=== PATIENT | female | born 1990 | race Caucasian/White ===

== ENCOUNTER → 2016-11-24 | Day surgery (SDC) | payer OTHER ==
--- NOTE | 2016-11-25 14:43 | PATH ---
Cytology Non-Gynecological Report Patient Name: [facility]. Rec. #: [id number] /Age/Gender: 1990 (Age: 25) / F Account: [id number] Location: RADIOLOGY Taken: 11/24/2016 Received: 11/24/2016 Reported: 11/25/2016 Physicians: Osiris Crews MD Specimen(s) Received THYROID FNA Clinical History Right thyroid nodule, 1.3 x 0.75 x 1.3 cm Final Diagnosis THYROID GLAND, RIGHT LOBE, US GUIDED FINE NEEDLE ASPIRATION BIOPSY: ASSESSMENT THE EVALUATION. NO MALIGNANT CELLS IDENTIFIED. CONSISTENT WITH NODULAR HYPERPLASIA (BENIGN FOLLICULAR NODULE, BETHESDA CATEGORY II, BENIGN), SEE COMMENT. Comment: The smears show clusters of bland-appearing follicular epithelium cells in macrofollicles and flat sheets and colloid. Electronically Signed Jose Nagy M.D. Gross Description Received is one air dried smears, one smears in 95% alcohol, and 15 cc of bloody fluid in formalin. One diff-quik stained slides, one Pap stained slides and one cell block are made.
== END | disposition home or self-care (01) ==
LOC: JRADIR 07:58
PROVIDERS: ATTEND Family Medicine
PROC: 0G9H3ZX Drainage of Right Thyroid Gland Lobe, Percutaneous Approach, Diagnostic (ICD-10-PCS; principal; 2016-11-24)
PROC: BG44ZZZ Ultrasonography of Thyroid Gland (ICD-10-PCS; 2016-11-24)
DX: E04.1 Nontoxic single thyroid nodule (principal)
CPT/HCPCS: 76942; 88173; 88305-TC

== ENCOUNTER 2017-05-18 02:10 | Emergency (ER) | payer OTHER ==
[2017-05-18 03:34] VITALS: BMI 28.5
[2017-05-18] MEDS ORDERED: ACETAMINOPHEN 325 MG TABLET (FP) PO ONE (03:56)
--- NOTE | 2017-05-18 04:21 | PDOC ---
History of Present Illness - General Chief Complaint: Injury Stated Complaint: FINGER INJURY Time Seen by Provider: 05/18/17 03:52 History Source: Patient Exam Limitations: No Limitations - History of Present Illness Initial Comments: 05/18/17 04:14 26yo Female patient w/ PmHx: Asthma, Gastric Sleeve presents to ED c/o left hand small finger injury. Patient states while playing around with her boyfriend her finger became stuck in his shirt and she yanked it out causing injury. She states she was trying to sleep, but was unable to due to pain. She denies any other complaints at this time. LNMP: IUD. Occurred: reports: this evening Severity: reports: mild Pain Location: reports: upper extremity Method of Injury: Yes: other Modifying Factors: worse with: None, cold therapy, immobilization, pain medication, rest, other Past History - Travel Traveled outside of the country in the last 30 days: No Close contact w/someone who was outside of country & ill: No - Past Medical History Allergies/Adverse Reactions: Allergies Allergy/AdvReac Type Severity Reaction Status Date / Time ciprofloxacin [From Cipro] Allergy Severe anaphylaxis Verified 05/18/17 02:50 ciprofloxacin HCl Allergy Severe anaphylaxis Verified 05/18/17 02:50 [From Cipro] codeine [Codeine] Allergy Severe Swelling Verified 05/18/17 02:50 butalbital [From Fioricet] Allergy Vomiting Verified 05/18/17 02:50 caffeine [From Fioricet] Allergy Vomiting Verified 05/18/17 02:50 Home Medications: Ambulatory Orders Albuterol Sulfate Inhaler - [Ventolin Hfa Inhaler -] 1 - 2 inh PO QID PRN Anemia: No Asthma: Yes Cancer: No Cardiac Disorders: No CVA: No COPD: No CHF: No Dementia: No Diabetes: No GI Disorders: Yes (GASTRITIS) Disorders: Yes (CYSTITIS, FREQUENCY) HTN: No Hypercholesterolemia: No Suicide Attempt (Hx): No Seizures: No Thyroid Disease: No - Surgical History Appendectomy: No Cardiac Surgery: No Cholecystectomy: Yes (2014) Lung Surgery: No Neurologic Surgery: No Orthopedic Surgery: No - Reproductive History (#): 2 Para: 1 Spontaneous : 1 - Immunization History Td Vaccination: Yes (MAY 2014) Immunization Up to Date: Yes - Psycho/Social/Smoking Cessation Hx Anxiety: No Suicidal Ideation: No Smoking Status: No Smoking History: Never smoked Have you smoked in the past 12 months: No Number of Cigarettes Smoked Daily: 0 Hx Alcohol Use: No Drug/Substance Use Hx: No Substance Use Type: None Hx Substance Use Treatment: No Trauma Specific PMHX - Complaint Specific PMHX Arthritis: No Back Injury: No Neck Injury: No Hx Sacro Iliac Joint Dysfunction: No Review of Systems - Review of Systems Able to Perform ROS?: Yes Is the patient limited Moroccan proficient: No Musculoskeletal: Yes: Other (Hand Injury- Left small finger.) All Other Systems: Reviewed and Negative *Physical Exam - Vital Signs Last Vital Signs Temp Pulse Resp BP Pulse Ox 98.1 F 57 L 18 121/69 99 05/18/17 02:47 05/18/17 02:47 05/18/17 02:47 05/18/17 02:47 05/18/17 02:47 - Physical Exam General Appearance: Yes: Nourished, Appropriately Dressed. No: Apparent Distress, Mild Distress, Moderate Distress, Severe Distress Respiratory/Chest: positive: Lungs Clear, Normal Breath Sounds. negative: Chest Tender, Respiratory Distress, Accessory Muscle Use, Labored Respiration, Rapid RR Cardiovascular: positive: Regular Rhythm, Regular Rate Musculoskeletal: positive: Normal Inspection. negative: CVA Tenderness, Vertebral Tenderness Extremity: positive: Normal Capillary Refill, Normal Inspection, Normal Range of Motion, Other (Tenderness to left small finger on Passive ROM. No deformity, swelling, bruising, erythema noted.) Integumentary: positive: Normal Color, Dry, Warm. 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, Fully Oriented, Alert, Normal Mood/ Affect, Normal Response, Motor Strength 5/5 ED Treatment Course - RADIOLOGY Radiology Studies Ordered: Category Date Time Status HAND- LEFT [RAD] Stat Radiology 05/18/17 03:56 Ordered *DC/Admit/Observation/Transfer Diagnosis at time of Disposition: Sprain of finger Qualifiers: Encounter type: initial encounter Finger: little finger Sprain of finger site: unspecified site Laterality: left Qualified Code(s): S63.617A - Unspecified sprain of left little finger, initial encounter - Discharge Dispostion Disposition: HOME Condition at time of disposition: Stable Admit: No - Patient Instructions Printed Discharge Instructions: DI for Finger Sprain Additional Instructions: Take Tylenol for pain as needed. Apply cold compress to affected area as needed. Perform ROM exercises twice daily. Return if symptom worsen or any concerns for further evaluation. Print Language: ARMENIAN - Post Discharge Activity Work/School Note: Back to Work
[2017-05-18] MEDS ORDERED: ACETAMINOPHEN 325 MG TABLET (FP) ONE (04:23)
[2017-05-18 05:40] VITALS: BP 120/72; PULSE 63; TEMP 98
== END 2017-05-18 05:39 | disposition home or self-care (01) ==
LOC: JER 02:10
DX: S63.637A Sprain of interphalangeal joint of left little finger, initial encounter (principal); X50.0XXA Overexertion from strenuous movement or load, initial encounter; Y93.83 Activity, rough housing and horseplay; Y92.038 Other place in apartment as the place of occurrence of the external cause
CPT/HCPCS: 73130-TC-LT; 99282-25

== ENCOUNTER 2017-10-26 18:47 | Emergency (ER) | payer OTHER ==
[2017-10-26 19:12] LABS: PH,URINE 5.5 (4.5-8); URINE APPEARANCE Clear; URINE BILIRUBIN Negative (NEGATIVE); URINE BLOOD Negative (NEGATIVE); URINE GLUCOSE (UA) Negative (NEGATIVE); URINE KETONE Trace (NEGATIVE); URINE LEUK ESTERASE Negative (NEGATIVE); URINE NITRITE Negative (NEGATIVE); URINE PROTEIN Negative (NEGATIVE); URINE UROBILINOGEN 0.2 (0.2-1.0)
[2017-10-26 19:14] VITALS: BP 112/74; PULSE 64; TEMP 98.7; BMI 26.2
[2017-10-26 19:16] LABS: URINE COLOR YELLOW
--- NOTE | 2017-10-26 19:39 | PDOC ---
History of Present Illness - General History Source: Patient Exam Limitations: No Limitations - History of Present Illness Initial Comments: 10/26/17 19:50 26 year old female , with PMH of asthma, gastric sleeve bypass (2014), cholecystectomy, ovarian cysts, pyelonephritis (1 year ago), frequent UTIs, who presents to the emergency room complaining of nonradiating RLQ abdominal pain that is 8/10 in severity, nausea, and 1 episode of diarrhea. The pain woke her up from sleep this morning and has been constant throughout the day. She states that she has never felt pain similar to this before. Her LMP was on 10/20. Denies fever, chills, vomiting. Denies constipation, bloody or tarry stool. She denies any back pain. Denies urinary symptoms. Denies vaginal discharge. Allergies: ciprofloxacin, ciprofloxacin HCl, codeine, butalbital, caffeine Surgical Hx: asthma gastric sleeve (2014), cholecystectomy Social hx: No tabacco use. No recreational drug use. No alcohol use. PCP: Dr. Garay 10/26/17 19:59 <Halina Vivar - Last Filed: 10/26/17 19:59> <Isi Garg - Last Filed: 10/27/17 02:11> - General Chief Complaint: Pain Stated Complaint: ABDOMINAL PAIN Time Seen by Provider: 10/26/17 19:20 Past History <Halina Vivar - Last Filed: 10/26/17 19:59> - Past Medical History Anemia: No Asthma: Yes Cancer: No Cardiac Disorders: No CVA: No COPD: No CHF: No Dementia: No Diabetes: No GI Disorders: Yes (GASTRITIS) Disorders: Yes (CYSTITIS, FREQUENCY) HTN: No Hypercholesterolemia: No Seizures: No Thyroid Disease: Yes (NODULE) - Surgical History Appendectomy: No Cardiac Surgery: No Cholecystectomy: Yes (2015 AND BILE DUCT) Gastric Stapling: Yes (GASTRIC SLEEVE) Lung Surgery: No Neurologic Surgery: No Orthopedic Surgery: No - Reproductive History Is Patient Now?: No (#): 2 Para: 1 Spontaneous : 1 - Immunization History Td Vaccination: Yes (MAY 2014) Immunization Up to Date: Yes - Suicide/Smoking/Psychosocial Hx Smoking Status: No Smoking History: Never smoked Have you smoked in the past 12 months: No Number of Cigarettes Smoked Daily: 0 Hx Alcohol Use: Yes (OCCASIONAL) Drug/Substance Use Hx: No Substance Use Type: None Hx Substance Use Treatment: No <Isi Garg - Last Filed: 10/27/17 02:11> - Past Medical History Allergies/Adverse Reactions: Allergies Allergy/AdvReac Type Severity Reaction Status Date / Time ciprofloxacin [From Cipro] Allergy Severe anaphylaxis Verified 05/18/17 02:50 ciprofloxacin HCl Allergy Severe anaphylaxis Verified 05/18/17 02:50 [From Cipro] codeine [Codeine] Allergy Severe Swelling Verified 05/18/17 02:50 butalbital [From Fioricet] Allergy Vomiting Verified 05/18/17 02:50 caffeine [From Fioricet] Allergy Vomiting Verified 05/18/17 02:50 Home Medications: Ambulatory Orders Albuterol Sulfate Inhaler - [Ventolin Hfa Inhaler -] 1 - 2 inh PO QID PRN Ergocalciferol (Vitamin D2) [Vitamin D2] 50,000 unit PO WEEKLY 10/26/17 Fluticasone Propionate [Flovent Diskus] 50 mcg IH DAILY 10/26/17 Multivit/Iron/FA/K/Herb No.244 [Alive Women's Energy Mv Tablet] 2 each PO DAILY 10/26/17 Review of Systems - Review of Systems Able to Perform ROS?: Yes Comments:: 10/26/17 19:55 GENERAL/CONSTITUTIONAL: No fever or chills. No weakness. HEAD, EYES, EARS, NOSE AND THROAT: No change in vision. No ear pain or discharge. No sore throat. CARDIOVASCULAR: No chest pain or shortness of breath. RESPIRATORY: No cough, wheezing, or hemoptysis. GASTROINTESTINAL: +RLQ pain, nausea, diarrhea. No vomiting or constipation. GENITOURINARY: No dysuria, frequency, or change in urination. MUSCULOSKELETAL: No joint or muscle swelling or pain. No neck or back pain. SKIN: No rash NEUROLOGIC: No headache, vertigo, loss of consciousness, or change in strength/ sensation. ENDOCRINE: No increased thirst. No abnormal weight change. HEMATOLOGIC/LYMPHATIC: No anemia, easy bleeding, or history of blood clots. ALLERGIC/IMMUNOLOGIC: No hives or skin allergy. <Halina Vivar - Last Filed: 10/26/17 19:59> *Physical Exam - Vital Signs Last Vital Signs Temp Pulse Resp BP Pulse Ox 98.7 F 64 16 112/74 100 10/26/17 18:48 10/26/17 18:48 10/26/17 18:48 10/26/17 18:48 10/26/17 18:48 - Physical Exam Comments: 10/26/17 19:54 GENERAL: Awake, alert, and fully oriented, in no acute distress HEAD: No signs of trauma EYES: PERRLA, EOMI, sclera anicteric, conjunctiva clear ENT: Auricles normal inspection, hearing grossly normal, nares patent, oropharynx clear without exudates. Moist mucosa NECK: Normal ROM, supple, no lymphadenopathy, JVD, or masses LUNGS: Breath sounds equal, clear to auscultation bilaterally. No wheezes, and no crackles HEART: Regular rate and rhythm, normal S1 and S2, no murmurs, rubs or gallops ABDOMEN: Soft, +moderate RLQ tenderness to palpation normoactive bowel sounds. No guarding, no rebound. No masses EXTREMITIES: Normal range of motion, no edema. No clubbing or cyanosis. No cords, erythema, or tenderness NEUROLOGICAL: Cranial nerves II through XII grossly intact. Normal speech, normal gait SKIN: Warm, Dry, normal turgor, no rashes or lesions noted. <Halina Vivar - Last Filed: 10/26/17 19:59> - Vital Signs Last Vital Signs Temp Pulse Resp BP Pulse Ox 98.7 F 64 16 112/74 100 10/26/17 18:48 10/26/17 18:48 10/26/17 18:48 10/26/17 18:48 10/26/17 18:48 <Isi Garg - Last Filed: 10/27/17 02:11> ED Treatment Course - ADDITIONAL ORDERS Additional order review: Laboratory Results 10/26/17 18:56 Urine Color Yellow Urine Appearance Clear Urine pH 5.5 Ur Specific [place] >= 1.030 H Urine Protein Negative Urine Glucose (UA) Negative Urine Ketones Trace Urine Blood Negative Urine Nitrite Negative Urine Bilirubin Negative Urine Urobilinogen 0.2 Ur Leukocyte Esterase Negative Urine HCG, Qual Negative <Halina Vivar - Last Filed: 10/26/17 19:59> - LABORATORY CBC & Chemistry Diagram: 10/26/17 19:55 10/26/17 19:55 - ADDITIONAL ORDERS Additional order review: Laboratory Results 10/26/17 18:56 Urine Color Yellow Urine Appearance Clear Urine pH 5.5 Ur Specific [place] >= 1.030 H Urine Protein Negative Urine Glucose (UA) Negative Urine Ketones Trace Urine Blood Negative Urine Nitrite Negative Urine Bilirubin Negative Urine Urobilinogen 0.2 Ur Leukocyte Esterase Negative Urine HCG, Qual Negative <Isi Garg - Last Filed: 10/27/17 02:11> Progress Note - Progress Note Progress Note: Documentation has been prepared under my direction and personally reviewed by me in its entirety. I attest that this documented accurately reflects all work, treatment, procedures and medical decision making performed by me. <Isi Garg Filed: 10/27/17 02:11> Medical Decision Making - Medical Decision Making As noted above, this 26-year-old woman presents with right lower quadrant pain; she also has nausea and one episode of diarrhea. No known sick contacts and no fever/chills reported. She has a history of ovarian cysts. Exam as noted Laboratory evaluation is essentially normal with white blood cell count of 6500 Ultrasound of the pelvis was performed to evaluate for right ovarian torsion or ruptured ovarian cyst. Ultrasound revealed no evidence of either process.: No free fluid with no evidence of cysts or torsion. Because appendix was not visualized during the ultrasound exam, CT of the abdomen and pelvis was require to fully rule out acute appendicitis Abdominal/pelvic CT interpreted by Imaging conduit helper: Normal appendix visualized. No other acute pathology. There was low attenuated area in the right lobe of the liver. Results discussed with the patient. Although she had no escalation of her pain and no vomiting during her stay in the emergency room, the patient still had discomfort in the right lower quadrant after several hours. Etiology of the pain is unclear since appendix/intestinal abnormality not visualized on CT; no ureteral stone evident and ovarian pathology not present. It is possible that patient has some discomfort related to early gastroenteritis. In any case, the patient should return if pain worsens or she develops vomiting/fever. She should drink plenty of fluids but maintain a light diet and follow up with her doctor in the near future. A copy of the preliminary interpretation of the CT was provided for the patient. <Isi Garg Filed: 10/27/17 02:11> *DC/Admit/Observation/Transfer - Attestations Scribe Attestion: 10/26/17 19:56 Documentation prepared by TAMMY Monroy, acting as medical equipment repair technician for Isi Garg MD <Halina Vivar - Last Filed: 10/26/17 19:59> <Isi Garg - Last Filed: 10/27/17 02:11> Diagnosis at time of Disposition: Abdominal pain Qualifiers: Abdominal location: right lower quadrant Qualified Code(s): R10.31 - Right lower quadrant pain - Discharge Dispostion Disposition: HOME Condition at time of disposition: Stable - Referrals Referrals: Eliceo Garay MD [Primary Care Provider] - - Patient Instructions Printed Discharge Instructions: DI for Abdominal Pain-Adult Additional Instructions: Drink plenty of water Light diet can take ibuprofen/naproxen/acetaminophen as needed; take with food Return to ER if you have worsening pain/vomiting/fever Follow-up with your doctor within the next 4 days - Post Discharge Activity Forms/Work/School Notes: Back to School
[2017-10-26] MEDS ORDERED: KETOROLAC TROMETHAMINE 30 MG/1 ML VIAL IVPUSH ONE (19:47)
[2017-10-26] MEDS ORDERED: SODIUM CHLORIDE 1,000 ML IV STA (19:47)
[2017-10-26] MEDS ORDERED: KETOROLAC TROMETHAMINE 30 MG/1 ML VIAL ONE (20:01)
[2017-10-26 20:14] LABS: BASOPHIL 0.7 % (0-2.0); EOSINOPHIL 0.9 % (0-4.5); MCH 30.2 pg (25.7-33.7); MCHC 35.1 g/dl (32.0-36.0); MEAN CELL VOLUME 86.2 fl (80-96); MEAN PLT VOLUME 8.3 fl (7.5-11.1); NEUTROPHILS 50.8 % (42.8-82.8); PLATELET COUNT 258 K/MM3 (134-434); RDW 12.1 % (11.6-15.6); WHITE BLOOD COUNT 6.5 K/mm3 (4.0-10.8)
[2017-10-26 20:27] LABS: ALBUMIN 3.9 g/dl (3.5-5.0); ALK PHOS 75 U/L (32-92); ANION GAP 4 (8-16); BILIRUBIN,TOTAL 0.3 mg/dl (0.2-1.0); CALCIUM 8.9 mg/dl (8.4-10.2); CO2 25 mmol/L (22-28); CREATININE 0.7 mg/dl (0.6-1.3); GLUCOSE,RANDOM 84 mg/dl (74-106); SGOT/AST 16 U/L (10-42); SGPT/ALT 6 U/L (10-40); TOT PROT 6.3 g/dl (6.4-8.3)
[2017-10-26] MEDS ORDERED: ONDANSETRON 4 MG/2 ML VIAL IVPUSH ONE (21:50)
[2017-10-26] MEDS ORDERED: ONDANSETRON 4 MG/2 ML VIAL ONE (21:54)
== END 2017-10-27 01:34 | disposition home or self-care (01) ==
LOC: FER 18:47
PROC: 3E0333Z Introduction of Anti-inflammatory into Peripheral Vein, Percutaneous Approach (ICD-10-PCS; principal; 2017-10-26)
PROC: 3E033GC Introduction of Other Therapeutic Substance into Peripheral Vein, Percutaneous Approach (ICD-10-PCS; 2017-10-26)
PROC: 3E0337Z Introduction of Electrolytic and Water Balance Substance into Peripheral Vein, Percutaneous Approach (ICD-10-PCS; 2017-10-26)
DX: R10.31 Right lower quadrant pain (principal); Z98.84 Bariatric surgery status; E04.1 Nontoxic single thyroid nodule
CPT/HCPCS: 36415; 74177-TC; 76856-TC; 80053; 81003; 84703; 85025; 99283-25

== ENCOUNTER 2018-01-11 17:45 | Emergency (ER) | payer OTHER ==
[2018-01-11] MEDS ORDERED: METOCLOPRAMIDE HCL INJECTION 10 MG/2 ML VIAL IVPUSH ONE (17:50)
[2018-01-11] MEDS ORDERED: SODIUM CHLORIDE 1,000 ML IV STA (17:50)
[2018-01-11] MEDS ORDERED: KETOROLAC TROMETHAMINE 30 MG/1 ML VIAL IVPUSH ONE (17:50)
[2018-01-11] MEDS ORDERED: DEXAMETHASONE SOD PHOSPHATE 10 MG/1 ML VIAL IVPUSH ONE (17:50)
[2018-01-11 17:54] VITALS: BP 114/68; PULSE 81; TEMP 98.1; BMI 27.4
--- NOTE | 2018-01-11 17:56 | PDOC ---
History of Present Illness - General Chief Complaint: Pain Stated Complaint: DIZZINESS, HEADACHE, CHEST PAIN Time Seen by Provider: 01/11/18 17:49 History Source: Patient Exam Limitations: No Limitations - History of Present Illness Initial Comments: 01/11/18 17:51 27 y/o female with headache for 2 weeks. Denies fever or neck pain. No aura. Hx of migraines in the past. OTC medications not working. Denies fall or trauma. Patient went to her PMD yesterday and was given referrals to specialists including Neurologist but stated wait time too long. Feels nauseous, no vomiting. This is not the worse headache of her life. No weakness or numbness. Has palpitations, chest tightness, but no back pain. No blurred vision. Past History - Past Medical History Allergies/Adverse Reactions: Allergies Allergy/AdvReac Type Severity Reaction Status Date / Time ciprofloxacin [From Cipro] Allergy Severe anaphylaxis Verified 01/11/18 17:47 ciprofloxacin HCl Allergy Severe anaphylaxis Verified 01/11/18 17:47 [From Cipro] codeine [Codeine] Allergy Severe Swelling Verified 01/11/18 17:47 butalbital [From Fioricet] Allergy Vomiting Verified 01/11/18 17:47 caffeine [From Fioricet] Allergy Vomiting Verified 01/11/18 17:47 Home Medications: Ambulatory Orders Levonorgestrel [Mirena] 1 each IY ASDIR 01/11/18 Marlin 01/11/18 Anemia: No Asthma: Yes Cancer: No Cardiac Disorders: No CVA: No COPD: No CHF: No Dementia: No Diabetes: No GI Disorders: Yes (GASTRITIS) Disorders: Yes (CYSTITIS, FREQUENCY) HTN: No Hypercholesterolemia: No Seizures: No Thyroid Disease: Yes (NODULE) - Surgical History Appendectomy: No Cardiac Surgery: No Cholecystectomy: Yes (2015 AND BILE DUCT) Gastric Stapling: Yes (GASTRIC SLEEVE) Lung Surgery: No Neurologic Surgery: No Orthopedic Surgery: No - Reproductive History (#): 2 Para: 1 Spontaneous : 1 - Immunization History Td Vaccination: Yes (MAY 2014) Immunization Up to Date: Yes - Suicide/Smoking/Psychosocial Hx Smoking Status: No Smoking History: Never smoked Have you smoked in the past 12 months: No Number of Cigarettes Smoked Daily: 0 Hx Alcohol Use: Yes (OCCASIONAL) Drug/Substance Use Hx: No Substance Use Type: None Hx Substance Use Treatment: No Review of Systems - Review of Systems Able to Perform ROS?: Yes Is the patient limited Portuguese proficient: No Constitutional: No: Chills, Fever Respiratory: No: Shortness of Breath Cardiac (ROS): No: Chest Pain ABD/GI: Yes: Nausea. No: Vomiting Musculoskeletal: No: Back Pain Neurological: Yes: Headache. No: Numbness, Paresthesia All Other Systems: Reviewed and Negative *Physical Exam - Physical Exam General Appearance: Yes: Nourished, Appropriately Dressed, Mild Distress HEENT: positive: EOMI, MARIA DE JESUS, Normal ENT Inspection, Normal Voice, Symmetrical, Pharynx Normal. negative: Sinus Tenderness Neck: positive: Trachea midline, Normal Thyroid, Supple, Other (no menineal signs noted). negative: Tender, Rigid Respiratory/Chest: positive: Lungs Clear, Normal Breath Sounds. negative: Chest Tender, Respiratory Distress Cardiovascular: positive: Regular Rhythm, Regular Rate, S1, S2. negative: Edema , JVD, Murmur Vascular Pulses: Femoral (R): 4+, Femoral (L): 4+, Carotid (R): 4+, Carotid (L) : 4+, Dorsalis-Pedis (R): 4+, Doralis-Pedis (L): 4+ Gastrointestinal/Abdominal: positive: Normal Bowel Sounds, Flat, Soft. negative : Tender, Organomegaly Lymphatic: negative: Adenopathy, Tenderness, Other Musculoskeletal: positive: Normal Inspection. negative: CVA Tenderness Extremity: positive: Normal Capillary Refill, Normal Inspection, Normal Range of Motion. negative: Tender Integumentary: positive: Normal Color, Dry, Warm Neurologic: positive: toe sewer II-XII NML intact, Fully Oriented, Alert, Normal Mood/ Affect, Normal Response, Motor Strength 5/5 (strength 5+/5 b/l in UE adn LE, no focal deficits noted) ED Treatment Course - LABORATORY CBC & Chemistry Diagram: 01/11/18 18:10 01/11/18 18:10 - ADDITIONAL ORDERS Additional order review: 01/11/18 17:55 Pt appears to have a migraine headache, will obtain CT head and give IVF and pain medications. 01/11/18 18:46 CT head negative for bleed 01/11/18 18:53 Pt is feeling a little better, labs all normal. 01/11/18 18:59 No menigeal signs noted. Headache is improving. Pt will follow up with PMD/Neurologist If worsen will return to ER - RADIOLOGY Radiology Studies Ordered: Category Date Time Status HEAD CT WITHOUT CONTRAST [CT] Stat CT Scan 01/11/18 17:50 Ordered *DC/Admit/Observation/Transfer Diagnosis at time of Disposition: Migraine headache Qualifiers: Migraine type: unspecified Status migrainosus presence: without status migrainosus Intractability: not intractable Qualified Code(s): G43.909 - Migraine, unspecified, not intractable, without status migrainosus - Discharge Dispostion Disposition: HOME Condition at time of disposition: Stable - Referrals - Patient Instructions Printed Discharge Instructions: DI for Migraine Additional Instructions: Fluids, rest, Tylenol Follow up with Neurologist If worsen return to ER - Post Discharge Activity Forms/Work/School Notes: Back to Work
[2018-01-11] MEDS ORDERED: DEXAMETHASONE SOD PHOSPHATE 10 MG/1 ML VIAL ONE (18:01)
[2018-01-11] MEDS ORDERED: KETOROLAC TROMETHAMINE 30 MG/1 ML VIAL ONE (18:01)
[2018-01-11 18:33] LABS: BASO % 0.5 % (0-2.0); EOS % 0.6 % (0-4.5); HEMATOCRIT 40.8 % (32.4-45.2); HEMOGLOBIN 14.2 GM/dl (10.7-15.3); LYMPH % 27.6 % (8-40); MCH 29.8 pg (25.7-33.7); MCHC 34.8 g/dl (32.0-36.0); MEAN CELL VOLUME 85.7 fl (80-96); MEAN PLT VOLUME 7.6 fl (7.5-11.1); MONO % 8.2 % (3.8-10.2); NEUT % 63.1 % (42.8-82.8); PLATELET COUNT 357 K/MM3 (134-434); RBC 4.76 M/mm3 (3.60-5.2); RDW 11.2 % (11.6-15.6)
[2018-01-11 18:38] LABS: ALK PHOS 52 U/L (32-92); ANION GAP 4 (8-16); BLOOD UREA NITROGEN 14 mg/dl (7-18); CALCIUM 9.1 mg/dl (8.4-10.2); CHLORIDE 105 mmol/L (98-107); CO2 24 mmol/L (22-28); GLUCOSE,RANDOM 108 mg/dl (74-106); POTASSIUM 4.1 mmol/L (3.5-5.1); SGOT/AST 21 U/L (10-42); SODIUM 133 mmol/L (136-145); TOT PROT 6.9 g/dl (6.4-8.3)
[2018-01-11 18:56] LABS: BILIRUBIN,TOTAL 0.5 mg/dl (0.2-1.0); CREATININE 0.8 mg/dl (0.6-1.3); SGPT/ALT 8 U/L (10-40)
--- NOTE | 2018-01-12 18:20 | EKG ---
Test Reason : Blood Pressure : / mmHG Vent. Rate : 082 BPM Atrial Rate : 082 BPM P-R Int : 144 ms QRS Dur : 072 ms QT Int : 366 ms P-R-T Axes : 061 072 034 degrees QTc Int : 427 ms POOR DATA QUALITY, INTERPRETATION MAY BE ADVERSELY AFFECTED NORMAL SINUS RHYTHM WHEN COMPARED WITH ECG OF 06-APR-2016 15:54, NO SIGNIFICANT CHANGE WAS FOUND Confirmed by MD WENDY, LISA ([id number]) on 01/12/2018 6:19:32 PM Referred By: DR BERRY Confirmed By:LISA NGUYEN MD
== END 2018-01-11 19:20 | disposition home or self-care (01) ==
LOC: FER 17:45
PROC: 3E033GC Introduction of Other Therapeutic Substance into Peripheral Vein, Percutaneous Approach (ICD-10-PCS; principal; 2018-01-11)
PROC: 3E0333Z Introduction of Anti-inflammatory into Peripheral Vein, Percutaneous Approach (ICD-10-PCS; 2018-01-11)
PROC: 3E0337Z Introduction of Electrolytic and Water Balance Substance into Peripheral Vein, Percutaneous Approach (ICD-10-PCS; 2018-01-11)
DX: G43.909 Migraine, unspecified, not intractable, without status migrainosus (principal); J45.909 Unspecified asthma, uncomplicated; K29.70 Gastritis, unspecified, without bleeding
CPT/HCPCS: 36415; 70450-TC; 80053; 84484; 84703; 85025; 93005; 99285-25; J1100

== ENCOUNTER 2018-07-17 05:01 | Day surgery (SDC) | payer OTHER ==
[2018-07-12 17:47] VITALS: BMI 29.9
[2018-07-17] MEDS ORDERED: ceFAZolin SODIUM 1 GM VIAL IVPB ONE ×2 (12:08→13:08)
--- NOTE | 2018-07-17 12:52 | HP ---
History & Physical Update - History History: No Change - Physical Physical: No Change - Assessment Assessment: No Change - Plan Plan: No Change (Consent signed and witnessed)
[2018-07-17] MEDS ORDERED: MIDAZOLAM HCL 2 MG/2 ML SINGLE DOSE VIAL ONE ×2 (12:57)
[2018-07-17] MEDS ORDERED: ROCURONIUM BROMIDE 50 MG/5 ML VIAL ONE (13:03)
[2018-07-17] MEDS ORDERED: BUPIVACAINE HCL/PF 0.25% (2.5MG/ML) 10 ML VIAL ONE (13:48)
[2018-07-17] MEDS ORDERED: BUPIVACAINE HCL/PF 0.25% (2.5MG/ML) 10 ML VIAL IJ ONE (13:50)
[2018-07-17] MEDS ORDERED: GLYCOPYRROLATE 0.2 MG/1 ML VIAL ONE (13:51)
[2018-07-17] MEDS ORDERED: ceFAZolin SODIUM 1 GM VIAL ONE (13:51)
[2018-07-17] MEDS ORDERED: NEOSTIGMINE METHYLSULFATE 0.5 MG/ML - 10 ML MDV ONE (13:51)
[2018-07-17] MEDS ORDERED: LIDOCAINE HCL/PF 2% SDV 5ML VIAL ONE (13:51)
[2018-07-17] MEDS ORDERED: DEXAMETHASONE SOD PHOSPHATE 4 MG/1 ML VIAL ONE (13:51)
[2018-07-17] MEDS ORDERED: LIDOCAINE HCL 2% JELLY (5 ML/TUBE) ONE (13:51)
--- NOTE | 2018-07-17 14:16 | OP ---
Operative Note - Note: Operative Date: 07/17/18 Pre-Operative Diagnosis: 27yo P2 with Chronic pelvic pain Operation: Dignostic Laporoscopy Findings: Abdomen and pelvis clear of adhesions Normal bilateral adnexa and appendix No evidence of Endometriosis Post-Operative Diagnosis: Same as Pre-op Surgeon: Mervat Kerr Scutcher Tender: Juliana Gloria Anesthesiologist/AVIATION CONSULTANT: Naty Au MD Anesthesia: General Specimens Removed: None Estimated Blood Loss (mls): 0 Drains, Volume Out (mls): 100 Fluid Volume Replaced (mls): 1,000 Operative Report Dictated: Yes
[2018-07-17] MEDS ORDERED: oxyCODONE HCL 5 MG TABLET PO PRN (14:17)
[2018-07-17] MEDS ORDERED: IBUPROFEN 800 MG/8 ML IJ IVPB PRN (14:17)
[2018-07-17] MEDS ORDERED: ONDANSETRON 4 MG/2 ML VIAL IVPUSH PRN ×2 (14:17→14:19)
[2018-07-17] MEDS ORDERED: IBUPROFEN 600 MG TABLET (FP) PO PRN (14:17)
[2018-07-17] MEDS ORDERED: LACTATED RINGERS SOLUTION 1,000 ML IV SCH (14:30)
[2018-07-17] MEDS ORDERED: ELECTROLYTE-148 SOLN 1,000 ML IV SCH (14:30)
[2018-07-17] MEDS ORDERED: ALBUTEROL SO4 0.083% IH SOL 2.5 MG/3 ML VIAL.NEB. NEB ONE (15:15)
[2018-07-17 15:54] VITALS: TEMP 98.1
[2018-07-17] MEDS ORDERED: KETOROLAC TROMETHAMINE 30 MG/1 ML VIAL ONE (16:06)
--- NOTE | 2018-07-17 16:43 | SURG ---
Surgery Environmental Protection Officer Note Environmental Protection Officer: Juliana Gloria PA-C Date of Service: 07/17/18 Diagnosis: 27yo P2 with Chronic pelvic pain Procedure: Dignostic Laporoscopy I was present for the entirety of the operative procedure. For further detail, please refer to operative report.
[2018-07-17 18:02] VITALS: BP 99/65; PULSE 86
--- NOTE | 2018-07-17 22:00 | OP ---
DATE OF OPERATION: 07/17/2018 PREOPERATIVE DIAGNOSIS: A 27-year-old para 2 with chronic pelvic pain. POSTOPERATIVE DIAGNOSIS: A 27-year-old para 2 with chronic pelvic pain. OPERATION: Diagnostic laparoscopy. FINDINGS: Abdomen and pelvis clear of adhesions. No evidence of endometriosis. Normal bilateral adnexa and appendix. SURGEON: Mervat Kerr MD SENIOR INTEGRATION DEVELOPER: KIM Quiroz ANESTHESIOLOGIST: Naty Au MD ANESTHESIA: General. SPECIMENS REMOVED: None. DESCRIPTION OF OPERATIVE PROCEDURE: After assuring informed consent, the patient was brought to the operating room where she was placed in the dorsal lithotomy position. Abdomen and perineum were prepped and draped in the sterile fashion. Uterine manipulator was placed sterilely and Calderón catheter was placed sterilely as well. The laparoscope was assembled, weight balanced. The 5-mm intraumbilical incision was created with a scalpel. Veress needle was introduced and normal saline drop test was positive. The abdomen was insufflated with CO2 gas. Optiview 5-mm laparoscope was introduced under direct visualization. Abdomen was surveyed with the above findings. No adhesions. No endometriosis. Normal bilateral adnexa and appendix were noted. The gas was expressed and trocar was taken out from the abdomen. The intraumbilical incision was sutured with 4-0 Biosyn suture and 0.25% Marcaine 6 mL was injected paraumbilically. Band-Aid was placed on the area of the incision. HUMI and Calderón were removed. Patient was placed in the supine position. Instrument and sponge counts were correct x2. Patient was brought to the recovery room in stable condition. Osiris [id number]
== END 2018-07-17 18:00 | disposition home or self-care (01) ==
LOC: JASU-SURG 05:01
PROVIDERS: ATTEND Obstetrics & Gynecology
PROC: 0WJJ4ZZ Inspection of Pelvic Cavity, Percutaneous Endoscopic Approach (ICD-10-PCS; principal; 2018-07-17 10:30)
DX: R10.2 Pelvic and perineal pain (principal); G89.29 Other chronic pain
CPT/HCPCS: 84703; 94760

== ENCOUNTER 2018-08-10 09:04 | Emergency (ER) | payer OTHER ==
[2018-08-10 09:11] VITALS: BMI 30.9
--- NOTE | 2018-08-10 09:48 | PDOC ---
Attending Attestation - Resident Resident Name: Macario Méndez - ED Attending Attestation I have performed the following: I have examined & evaluated the patient, The case was reviewed & discussed with the resident, I agree w/resident's findings & plan, Exceptions are as noted - HPI HPI: 08/10/18 09:42 27yo F hx recent ex lap 07/17 for chronic pelvic pain (neg for endometriosis, appy ), cholecystectomy 2016 c/b retained stone s/p ERCP for retrieval ([facility]), gastric sleeve 2014 presents to the ED with progressive SOB, abd pain, and CP for 2 weeks. Pt has been following up at [facility] for these sxs, but states this AM was advised to go to the ED for further workup. Reports CP is sternal, burining and stabbing, not pleuritic, is not radiating and is worse with movement and walking. States CP is a/w SOB. Pt also reports b/l LE cramping diffusely for 2 weeks and had RLE DVT US 07/30 which was negative (pt has report ). She also reports fevers (tmax 100.3), chills, nausea, and continued dysuria. Pt also reporting nonfocal diffuse "stomach" pain. When asked where it hurts the most, she can not localize and points to her entire abd area. Pt denies focal weakness/numbness. Denies rashes, vomiting. - Physicial Exam PE: 08/10/18 10:28 GENERAL: Awake, alert, and fully oriented, in no acute distress HEAD: No signs of trauma EYES: PERRLA, EOMI, sclera anicteric, conjunctiva clear ENT: Auricles normal inspection, hearing grossly normal, nares patent, oropharynx clear without exudates. Moist mucosa NECK: Normal ROM, supple, no lymphadenopathy, JVD, or masses LUNGS: Breath sounds equal, clear to auscultation bilaterally. No wheezes, and no crackles HEART: Regular rate and rhythm, normal S1 and S2, no murmurs, rubs or gallops. + ttp when pushing on sternum ABDOMEN: Soft, nontender, normoactive bowel sounds. No guarding, no rebound. No masses. No CVAT EXTREMITIES: Normal range of motion, no edema. No clubbing or cyanosis. No cords, erythema, or tenderness NEUROLOGICAL: Normal speech, cranial nerves intact, negative pronator drift, 5/ 5 strength in all 4 extremities, normal sensation to light touch in all 4 extremities, normal cerebellar exam, normal gait, normal reflexes and tone SKIN: Warm, Dry, normal turgor, no rashes or lesions noted. - Medical Decision Making 08/10/18 10:30 27yo F with mult abd surgeries, including ex-lap 07/17/18 presents to the ED with multiple complaints, mainly CP, SOB, and abd pain. Vitals wnl. Exam with well appearing pt, benign abd exam, +reproducible CP No calf edema or tenderness. EKG nonischemic with no evidence of R heart strain. Wells score 1.5 (low risk) for surgery in last 4 weeks, will send dimer. Given c/o leg cramping, will rpt LE US. With regards to abd pain, will check labs and perform serial abdominal exams. Will also recheck UA for infection. 08/10/18 15:17 Labs wnl, including trop x2 dimer neg, CP/SOB resolved in ED, vitals stable throughout. UA neg Rpt exam with persistent diffuse abd pain, given surgicial hx, CTAP obtained which showed no acute findings. Pt feeling better, requests food and is tolerating PO REquests DC home Will refer to GI for abd pain I discussed the physical exam findings, ancillary test results and final diagnoses with the patient. I answered all of the patient's questions. The patient was satisfied with the care received and felt comfortable with the discharge plan and treatment plan. The patient will call their primary care physician within 24 hours to arrange follow-up and will return to the Emergency Department with any new, persistent or worsening symptoms. Heart Score/ECG Review #1 08/10/18 10:29 Twelve-lead EKG was performed and reviewed by me. Normal sinus rhythm, rate 77. Normal axis and intervals. No ST elevations or T-wave inversions.
[2018-08-10] MEDS ORDERED: SODIUM CHLORIDE 1,000 ML IV STA (10:03)
--- NOTE | 2018-08-10 10:07 | PDOC ---
History of Present Illness - General Chief Complaint: Chest Pain Stated Complaint: CHEST PAIN Time Seen by Provider: 08/10/18 09:22 - History of Present Illness Initial Comments: 08/10/18 10:05 27 year old female with PMH of asthma, gastric sleeve bypass (2014), cholecystectomy, ovarian cysts, pyelonephritis (1 year ago), frequent UTIs, and recent diagnostic laproscopy for pelvic pain (3wks ago) who presents to the emergency room complaining of dysuria, and worsening lower abd pain, chest pain , SOB, and leg cramping for 3wks. Pt began experiencing dysuria after her procedure and was diagnosed w/ UTI and switched to amoxicillin after failing macrobid tx. 2 wks ago pt began experiencing lower abd pain, CP, and and SOB at rest. CP is 6/10 sternal non radiating and stabbing/burning in nature. Pt has hx of heart burn but says this pain is different. Pt took aleve and tylenol which did not help. Pt also endorses fevers (100.3), chills, body aches, CORDERO, decreased appetite, dry heaving, lightheadedness, dysuria. Denies hematuria, numbness, tingling recent travel, long car rides, hx of clots, diarrhea, blood in stools, hx of STDs. Pt has been f/w PCP, and underwent Duplex of RLE which was neg for DVT. Pt came in w/ recent lab work. PMH: as per HPI SH: denies smoke, etoh, drug use. LMP 07/30 FH: Dad has DM HTN Past History - Past Medical History Allergies/Adverse Reactions: Allergies Allergy/AdvReac Type Severity Reaction Status Date / Time ciprofloxacin [From Cipro] Allergy Severe anaphylaxis Verified 08/10/18 09:05 ciprofloxacin HCl Allergy Severe anaphylaxis Verified 08/10/18 09:05 [From Cipro] codeine [Codeine] Allergy Severe Swelling Verified 08/10/18 09:05 butalbital [From Fioricet] Allergy Vomiting Verified 08/10/18 09:05 caffeine [From Fioricet] Allergy Vomiting Verified 08/10/18 09:05 Home Medications: Ambulatory Orders Cholecalciferol (Vitamin D3) [Vitamin D3 -] 2,000 unit PO DAILY 08/10/18 Metoprolol Tartrate [Lopressor -] 12.5 mg PO BID 08/10/18 Pentosan Polysulfate Sodium [Elmiron] 100 mg PO TID 08/10/18 Rizatriptan Benzoate [Maxalt] 10 mg PO PRN PRN 08/10/18 Anemia: No Asthma: Yes Cancer: No Cardiac Disorders: No CVA: No COPD: No CHF: No Dementia: No Diabetes: No GI Disorders: Yes (GASTRITIS) Disorders: Yes (CYSTITIS, FREQUENCY) HTN: No Hypercholesterolemia: No Seizures: No Thyroid Disease: Yes (NODULE) - Surgical History Appendectomy: No Cardiac Surgery: No Cholecystectomy: Yes (2015 AND BILE DUCT) Gastric Stapling: Yes (GASTRIC SLEEVE) Lung Surgery: No Neurologic Surgery: No Orthopedic Surgery: No - Reproductive History (#): 2 Para: 1 Spontaneous : 1 - Immunization History Td Vaccination: Yes (MAY 2014) Immunization Up to Date: Yes - Suicide/Smoking/Psychosocial Hx Smoking Status: No Smoking History: Never smoked Have you smoked in the past 12 months: No Number of Cigarettes Smoked Daily: 0 Hx Alcohol Use: No Drug/Substance Use Hx: No Substance Use Type: None Hx Substance Use Treatment: No Review of Systems - Review of Systems Constitutional: Yes: See HPI HEENTM: Yes: See HPI Respiratory: Yes: See HPI Cardiac (ROS): Yes: See HPI ABD/GI: Yes: See HPI : Yes: See HPI Musculoskeletal: Yes: See HPI Integumentary: Yes: See HPI Neurological: Yes: See HPI Endocrine: Yes: See HPI Hematologic/Lymphatic: Yes: See HPI *Physical Exam - Vital Signs Last Vital Signs Temp Pulse Resp BP Pulse Ox 99 F 85 18 130/94 99 08/10/18 09:04 08/10/18 09:04 08/10/18 09:04 08/10/18 09:04 08/10/18 09:04 - Physical Exam Comments: 08/10/18 10:27 General: mild distress HEENT: NCAT, PERRLA, MMM, No erythema or exudates. Cardio: RRR S1 S2 no m/r/g Lung: CTAB Abd: Soft +BS ND. TTP RUQ/RLQ/suprapubic EXT: radial pulses/DP 2+. no edema or leg swelling. TTP leg calves b/l MSK: strength intact skin: grossly intact Neuro: AOX3, grossly intact ED Treatment Course - LABORATORY CBC & Chemistry Diagram: 08/10/18 10:00 08/10/18 10:00 - RADIOLOGY Radiology Studies Ordered: Category Date Time Status CHEST PA & LAT [RAD] Stat Radiology 08/10/18 09:59 Ordered DUPLEX VASCUL US-2LEGS [US] Stat Ultrasound 08/10/18 09:57 Ordered Medical Decision Making - Medical Decision Making 08/10/18 10:24 27 year old female with PMH of asthma, gastric sleeve bypass (2014), cholecystectomy, ovarian cysts, pyelonephritis (1 year ago), frequent UTIs, and recent diagnostic laproscopy for pelvic pain (3wks ago), current UTI on amoxicillin, who presents to the emergency room complaining of dysuria, and worsening lower abd pain, chest pain, SOB, and leg cramping for 3wks Ddx: PE vs NSTEMI vs unstable angina vs Pyleo 2/2 UTI vs pancreatitis Wells score 1.5 (low risk) for surgery in last 4 weeks. Vitals wnl. EKG shows NSR. no ST or T wave changes -CBC, CMP, UA, Ucx, Lipase, CPK, troponin -CXR -IVF bolus - test -pt had neg DVT of RLE at PCP. We will rpt Duplex and image both legs -D-dimer to r/o PE 08/10/18 12:21 Duplex neg for dvt D-dimer neg CBC CMP wnl trop neg x1 neg preg 08/10/18 12:[address] A/P 08/10/18 14:50 CT A/P shows no acute pathology trop neg x2 Abd is soft ND w/ diffuse mild tenderness on palpation Pt is stable and ready for discharge. Pt told to f/u w/ PCP and can be referred to GI *DC/Admit/Observation/Transfer Diagnosis at time of Disposition: Abdominal pain - Discharge Dispostion Disposition: HOME Condition at time of disposition: Stable Decision to Admit order: No - Referrals Referrals: Perez Pyle [Primary Care Provider] - - Patient Instructions Additional Instructions: You came in for abdominal pain and chest pain. We gave you fluids. your labs and imaging were all normal and showed no signs of pulmonary embolism or heart attack. You underwent CT scan of the abdomen which was normal. Please continue your home meds. Please avoid spicy or greasy foods if you are feeling unwell and your stomach is bothering you. Please see your Primary care physician within 1 week Please see your GI doctor or Dr. Olson (GI) within 1 week If you experience fever, chills, severe worsening of abdominal pain, chest pain , shortness of breath, nausea, vomiting, blood in vomit, blood in stool, diarrhea, worsening pain with urination, blood in urine, please call 911 or come back to the ER. - Post Discharge Activity
[2018-08-10 10:34] LABS: BASO % 0.5 % (0-2.0); EOS % 1.5 % (0-4.5); HEMOGLOBIN 13.6 GM/dL (10.7-15.3); LYMPH % 28.5 % (8-40); MCH 29.8 pg (25.7-33.7); MCHC 34.9 g/dl (32.0-36.0); MEAN CELL VOLUME 85.3 fl (80-96); MEAN PLT VOLUME 8.1 fl (7.5-11.1); MONO % 8.9 % (3.8-10.2); NEUT % 60.6 % (42.8-82.8); PLATELET COUNT 311 K/MM3 (134-434); RBC 4.57 M/mm3 (3.60-5.2); RDW 12.8 % (11.6-15.6)
[2018-08-10 10:50] LABS: HCG,QUALITATIVE URINE Negative
[2018-08-10 10:56] LABS: URINE APPEARANCE CLEAR; URINE BILIRUBIN NEGATIVE (<2.0 mg/dL); URINE COLOR STRAW; URINE GLUCOSE (UA) NEGATIVE (NEGATIVE); URINE KETONE NEGATIVE (NEGATIVE); URINE LEUK ESTERASE NEGATIVE (NEGATIVE); URINE NITRITE NEGATIVE (NEGATIVE); URINE PROTEIN NEGATIVE (NEGATIVE); URINE UROBILINOGEN NEGATIVE mg/dL (0.2-1.0)
[2018-08-10 11:02] LABS: ALBUMIN 3.8 g/dl (3.4-5.0); ALK PHOS 85 U/L (45-117); ANION GAP 8 MMOL/L (8-16); BILIRUBIN,TOTAL 0.6 mg/dL (0.2-1); BLOOD UREA NITROGEN 9 mg/dL (7-18); CALCIUM 9.3 mg/dL (8.5-10.1); CHLORIDE 108 mmol/L (98-107); CO2 26 mmol/L (21-32); CREATININE 0.6 mg/dL (0.55-1.3); GLUCOSE,RANDOM 73 mg/dL (74-106); POTASSIUM 4.2 mmol/L (3.5-5.1); SGOT/AST 10 U/L (15-37); SGPT/ALT 12 U/L (13-61); SODIUM 142 mmol/L (136-145); TOT PROT 6.6 g/dl (6.4-8.2)
--- NOTE | 2018-08-10 11:25 | EKG ---
Test Reason : Blood Pressure : / mmHG Vent. Rate : 077 BPM Atrial Rate : 077 BPM P-R Int : 140 ms QRS Dur : 080 ms QT Int : 376 ms P-R-T Axes : 059 066 026 degrees QTc Int : 425 ms NORMAL SINUS RHYTHM NORMAL ECG WHEN COMPARED WITH ECG OF 11-JAN-2018 18:00, NO SIGNIFICANT CHANGE WAS FOUND Confirmed by ZACKERY GUSTAFSON MD ([id number]) on 08/10/2018 11:24:55 AM Referred By: Confirmed By:ZACKERY GUSTAFSON MD
[2018-08-10 12:58] LABS: LIPASE 192 U/L (73-393)
[2018-08-10 14:02] VITALS: BP 106/55; PULSE 64; TEMP 98.8
== END 2018-08-10 15:46 | disposition home or self-care (01) ==
LOC: JER 09:04
PROC: 3E0337Z Introduction of Electrolytic and Water Balance Substance into Peripheral Vein, Percutaneous Approach (ICD-10-PCS; principal; 2018-08-10)
DX: R10.30 Lower abdominal pain, unspecified (principal)
CPT/HCPCS: 36415; 71046-TC-FY; 74177-TC; 80053; 81003; 82550; 83690; 84484; 84703; 85025; 85379; 87086; 93005; 93010; 93970-TC; 99283-25; J7030

== ENCOUNTER 2018-10-10 18:35 | Emergency (ER) | payer OTHER ==
[2018-10-10 18:53] VITALS: BP 116/79; PULSE 70; TEMP 99; BMI 28.3
--- NOTE | 2018-10-10 19:19 | PDOC ---
History of Present Illness - General History Source: Patient Exam Limitations: No Limitations - History of Present Illness Initial Comments: The patient is a 27 year old female, with a significant PMH of gastric sleeve bypass (December of 2015), cholecystectomy, ovarian cysts, pyelonephritis (1 year ago), frequent UTIs, asthma,and recent diagnostic laparoscopy for pelvic pain (2 months ago) who presents to the emergency department complaining of one week of worsening epigastric and right-sided low back pain, which she believes is an issue related to her gastric sleeve. Patient notes she has chronic abdominal pain, so severe that it inhibits her from eating or drinking. Patient states that her lack of eating and drinking is causing her to feel dehydrated and hypoglycemic. Patient reports that she was admitted to [place] last month for similar pain, and was told it was a result of inflammation and stones in her bowel duct. Patient confirms nausea, which she had taken Zofran with no relief. She denies having a history of bowel dilation flare-ups. The patient denies chest pain, shortness of breath, headache and dizziness. Denies fever, chills, vomit, diarrhea and constipation. Denies dysuria, frequency, urgency and hematuria. PAST MEDICAL HISTORY: As per HPI. PAST SURGICAL HISTORY: Gastric Bypass (December 2015), Gallbladder removal ( 2014) FAMILY HISTORY: Dad has DM and HTN. SOCIAL HISTORY: Pt lives with family and is employed. MEDICATIONS: reviewed ALLERGIES: As per nursing notes ROS General: No fevers or chills, no weakness, no weight loss HEENT: No change in vision. No sore throat,. No ear pain CardioVascular: No chest pain or shortness of breath Respiratory:No cough, or wheezing. Gastrointestinal: +Epigastric pain +nausea, No vomiting, diarrhea or constipation, No rectal bleeding Genitourinary: No dysuria, hematuria, or frequency Musculoskeletal: +Right-side low back pain. No joint or muscle pain or swelling Neurologic: No headache, vertigo, dizziness or loss of consciousness Psychiatric: nor depression Skin: No rashes or easy bruising Endocrine: no increased thirst or abnormal weight change Allergic: no skin or latex allergy All other systems reviewed and normal Exam: General: Well-nourished well-developed individual, no acute distress HEENT: Throat: Normal, tonsils normal, no erythema or exudate Neck: Supple, no meningeal signs, no lymphadenopathy Eyes::Pupils equal reactive and round, extraocular motion intact Chest: Nontender to palpation Cardiac: S1-S2 normal, regular rate and rhythm, no murmurs rubs or gallops Respiratory: Lungs clear to auscultation bilateral Abdomen: +Tenderness to palpation over the upper abdomen. No pelvic tenderness. Soft, nondistended, normal bowel sounds. No guarding, no rebound. Extremities: Warm, dry, no cyanosis, clubbing, or edema Musculoskeletal: No CVA tenderness. Skin: No rashes Neuro: Alert and oriented x3, nonfocal exam, grossly intact, normal gait Psych: Normal mood and affect 10/10/18 19:41 <Chiqui Vicente - Last Filed: 10/10/18 19:41> - General History Source: Patient Exam Limitations: No Limitations - History of Present Illness Initial Comments: 10/10/18 22:42 A portion of this note was documented by scribe services under my direction. I have reviewed the details of the note, within reason, and agree with the documentation with the following case summary and management plan written by me. Patient treated in the ED. Nursing notes are reviewed and incorporated into the medical decision-making. Vital signs reviewed. Medical decision making: This is a 27-year-old female who has a long history of abdominal pain secondary to some chronic GI issues including gallstones and a gastric sleeve. Patient comes in complaining of several days abdominal pain. Patient's vitals were normal here in the emergency room Patient was given Toradol for the pain and IV fluids and a workup was initiated including CBC, comp, CAT scan abdomen and pelvis, lipase. Patient's workup was negative for any acute intra-abdominal process other than patient does have a moderate amount of constipation Patient given mag citrate and told to continue her stool softeners and laxatives that she is taking currently Patient also told to follow up with her GI doctor Patient discharged home <Tarah Buenrostro I - Last Filed: 10/10/18 22:46> - General Chief Complaint: Pain Stated Complaint: ABD PAIN Time Seen by Provider: 10/10/18 19:06 Past History <Chiqui Vicente - Last Filed: 10/10/18 19:41> - Past Medical History Anemia: No Asthma: Yes Cancer: No Cardiac Disorders: No CVA: No COPD: No CHF: No Dementia: No Diabetes: No GI Disorders: Yes (GASTRITIS) Disorders: Yes (CYSTITIS, FREQUENCY) HTN: No Hypercholesterolemia: No Seizures: No Thyroid Disease: Yes (NODULE) - Surgical History Appendectomy: No Cardiac Surgery: No Cholecystectomy: Yes (2015 AND BILE DUCT) Gastric Stapling: Yes (GASTRIC SLEEVE) Lung Surgery: No Neurologic Surgery: No Orthopedic Surgery: No - Reproductive History (#): 2 Para: 1 Spontaneous : 1 - Immunization History Td Vaccination: Yes (MAY 2014) Immunization Up to Date: Yes - Suicide/Smoking/Psychosocial Hx Smoking Status: No Smoking History: Never smoked Have you smoked in the past 12 months: No Number of Cigarettes Smoked Daily: 0 Information on smoking cessation initiated: No Hx Alcohol Use: No Drug/Substance Use Hx: No Substance Use Type: None Hx Substance Use Treatment: No <Tarah Buenrostro I - Last Filed: 10/10/18 22:46> - Past Medical History Allergies/Adverse Reactions: Allergies Allergy/AdvReac Type Severity Reaction Status Date / Time ciprofloxacin [From Cipro] Allergy Severe anaphylaxis Verified 10/10/18 18:37 ciprofloxacin HCl Allergy Severe anaphylaxis Verified 10/10/18 18:37 [From Cipro] codeine [Codeine] Allergy Severe Swelling Verified 10/10/18 18:37 butalbital [From Fioricet] Allergy Vomiting Verified 10/10/18 18:37 caffeine [From Fioricet] Allergy Vomiting Verified 10/10/18 18:37 Home Medications: Ambulatory Orders Ondansetron HCl [Zofran] 4 mg PO DAILY 10/10/18 Pantoprazole Sodium [Protonix] 40 mg PO DAILY 10/10/18 Tramadol HCl 50 mg PO DAILY 10/10/18 *Physical Exam - Vital Signs Last Vital Signs Temp Pulse Resp BP Pulse Ox 99 F 70 20 116/79 99 10/10/18 18:36 10/10/18 18:36 10/10/18 18:36 10/10/18 18:36 10/10/18 18:36 <Chiqui Vicente - Last Filed: 10/10/18 19:41> - Vital Signs Last Vital Signs Temp Pulse Resp BP Pulse Ox 99 F 70 20 116/79 99 10/10/18 18:36 10/10/18 18:36 10/10/18 18:36 10/10/18 18:36 10/10/18 18:36 <Tarah Buenrostro I - Last Filed: 10/10/18 22:46> Moderate Sedation - Procedure Monitoring Vital Signs: Procedure Monitoring Vital Signs Temperature 99 F 10/10/18 18:36 Pulse Rate 70 10/10/18 18:36 Respiratory Rate 20 10/10/18 18:36 Blood Pressure 116/79 10/10/18 18:36 O2 Sat by Pulse Oximetry (%) 99 10/10/18 18:36 <Chiqui Vicente - Last Filed: 10/10/18 19:41> - Procedure Monitoring Vital Signs: Procedure Monitoring Vital Signs Temperature 99 F 10/10/18 18:36 Pulse Rate 70 10/10/18 18:36 Respiratory Rate 20 10/10/18 18:36 Blood Pressure 116/79 10/10/18 18:36 O2 Sat by Pulse Oximetry (%) 99 10/10/18 18:36 <Tarah Buenrostro I - Last Filed: 10/10/18 22:46> ED Treatment Course - LABORATORY CBC & Chemistry Diagram: 10/10/18 19:47 10/10/18 19:47 <Tarah Buenrostro I - Last Filed: 10/10/18 22:46> *DC/Admit/Observation/Transfer - Attestations Scribe Attestion: 10/10/18 19:42 Documentation prepared by TAMMY Agrawal, acting as medical sonographer for Tarah Buenrostro MD. <Chiqui Vicente - Last Filed: 10/10/18 19:41> <Tarah Buenrostro I - Last Filed: 10/10/18 22:46> Diagnosis at time of Disposition: Abdominal pain Qualifiers: Abdominal location: upper abdomen, unspecified Qualified Code(s): R10.10 - Upper abdominal pain, unspecified Constipation Qualifiers: Constipation type: drug induced constipation Qualified Code(s): K59.03 - Drug induced constipation - Discharge Dispostion Disposition: HOME Condition at time of disposition: Stable - Patient Instructions Additional Instructions: Call your GI doctor in the morning and get an appointment follow-up as soon as possible. Take the mag citrate tomorrow morning. Return to the emergency department immediately with ANY new, persistent or worsening symptoms. Continue any medications as previously prescribed by your physician. You should follow up with your primary doctor as soon as possible regarding today's emergency department visit. . Please make sure your doctor reviews the results of your emergency evaluation. Thank you for coming to the Emergency Department today for your care. It was a pleasure to see you today. Please note that your evaluation is INCOMPLETE until you follow-up with your doctor.
[2018-10-10] MEDS ORDERED: KETOROLAC TROMETHAMINE 30 MG/1 ML VIAL IVPUSH ONE (19:21)
[2018-10-10] MEDS ORDERED: ONDANSETRON 4 MG/2 ML VIAL IVPB ONE (19:21)
[2018-10-10] MEDS ORDERED: SODIUM CHLORIDE 1,000 ML IV ONE (19:21)
[2018-10-10] MEDS ORDERED: KETOROLAC TROMETHAMINE 30 MG/1 ML VIAL ONE (19:49)
[2018-10-10] MEDS ORDERED: ONDANSETRON 4 MG/2 ML VIAL ONE (19:49)
[2018-10-10 20:02] LABS: BASO % 0.5 % (0-2.0); EOS % 0.7 % (0-4.5); HEMATOCRIT 39.4 % (32.4-45.2); HEMOGLOBIN 13.4 GM/dl (10.7-15.3); LYMPH % 25.1 % (8-40); MCH 29.7 pg (25.7-33.7); MEAN CELL VOLUME 87.4 fl (80-96); MEAN PLT VOLUME 8.4 fl (7.5-11.1); MONO % 7.7 % (3.8-10.2); PLATELET COUNT 307 K/MM3 (134-434); RBC 4.51 M/mm3 (3.60-5.2); RDW 11.8 % (11.6-15.6); WHITE BLOOD COUNT 7.5 K/mm3 (4.0-10.8)
[2018-10-10 20:14] LABS: ALBUMIN 3.8 g/dl (3.5-5.0); ALK PHOS 74 U/L (32-92); ANION GAP 6 MMOL/L (8-16); BILIRUBIN,TOTAL 0.5 mg/dl (0.2-1.0); BLOOD UREA NITROGEN 12 mg/dl (7-18); CHLORIDE 104 mmol/L (98-107); CO2 25 mmol/L (22-28); CREATININE 0.7 mg/dl (0.6-1.3); GLUCOSE,RANDOM 85 mg/dl (74-106); POTASSIUM 3.9 mmol/L (3.5-5.1); SGOT/AST 16 U/L (10-42); SODIUM 135 mmol/L (136-145); TOT PROT 6.5 g/dl (6.4-8.3)
[2018-10-10 20:17] LABS: SGPT/ALT < 8 U/L (10-40)
[2018-10-10 20:38] LABS: URINE APPEARANCE Clear; URINE BILIRUBIN Negative (NEGATIVE); URINE COLOR Yellow; URINE GLUCOSE (UA) Negative (NEGATIVE); URINE KETONE Negative (NEGATIVE); URINE LEUK ESTERASE Negative (NEGATIVE); URINE NITRITE Negative (NEGATIVE); URINE PROTEIN Negative (NEGATIVE); URINE UROBILINOGEN 0.2 (0.2-1.0)
[2018-10-10 20:44] LABS: HCG,QUALITATIVE URINE Negative
[2018-10-10] MEDS ORDERED: MAGNESIUM CITRATE 300 ML BOTTLE PO ONE (22:46)
== END 2018-10-10 22:54 | disposition home or self-care (01) ==
LOC: FER 18:35
PROC: 3E0333Z Introduction of Anti-inflammatory into Peripheral Vein, Percutaneous Approach (ICD-10-PCS; principal; 2018-10-10)
PROC: 3E033GC Introduction of Other Therapeutic Substance into Peripheral Vein, Percutaneous Approach (ICD-10-PCS; 2018-10-10)
PROC: 3E0337Z Introduction of Electrolytic and Water Balance Substance into Peripheral Vein, Percutaneous Approach (ICD-10-PCS; 2018-10-10)
DX: R10.10 Upper abdominal pain, unspecified (principal); K59.03 Drug induced constipation; Z98.84 Bariatric surgery status; J45.909 Unspecified asthma, uncomplicated
CPT/HCPCS: 36415; 74177-TC; 80053; 81003; 83690; 84703; 85025; 99284-25; J7030

== ENCOUNTER 2018-12-17 21:03 | Emergency (ER) | payer OTHER | END 2018-12-18 01:22 | disposition home or self-care (01) | LOC: JER 12-18 01:22 ==

== ENCOUNTER 2019-02-25 12:44 | Emergency (ER) | payer OTHER ==
[2019-02-25 12:52] VITALS: BP 113/79; TEMP 97.8; BMI 31.1
--- NOTE | 2019-02-25 12:53 | PDOC ---
History of Present Illness - General Chief Complaint: Pain Stated Complaint: ABD PAIN Time Seen by Provider: 02/25/19 12:52 History Source: Patient Exam Limitations: No Limitations - History of Present Illness Initial Comments: 02/25/19 13:08 28 year old woman A1 with a history of fibromyalgia, migraines, cholecystectomy, lap band surgery, removal of gallstones in the bile duct who presents with 1 week of constant achey 10/10 diffuse abdominal pain that started as lower abdominal pain and now also present in her R lower back associated with nausea. She saw her OBGYN 6 days ago for removal of her IUD as she was concerned that her symptoms were being caused by her IUD She denies pain with intercourse, vaginal discharge or spotting . The patient has had 3 prior abdominal surgeries. She has been passing gas and having regular bowel movements. She denies dysuria, hematuria Denies fever, chest pain, shortenss of breath Past History - Past Medical History Allergies/Adverse Reactions: Allergies Allergy/AdvReac Type Severity Reaction Status Date / Time ciprofloxacin [From Cipro] Allergy Severe anaphylaxis Verified 02/25/19 12:48 ciprofloxacin HCl Allergy Severe anaphylaxis Verified 02/25/19 12:48 [From Cipro] codeine [Codeine] Allergy Severe Swelling Verified 02/25/19 12:48 butalbital [From Fioricet] Allergy Vomiting Verified 02/25/19 12:48 caffeine [From Fioricet] Allergy Vomiting Verified 02/25/19 12:48 Home Medications: Ambulatory Orders Cyclobenzaprine HCl [Flexeril -] 10 mg PO HS 02/25/19 Gabapentin 300 mg PO DAILY 02/25/19 Meloxicam [Mobic] 15 mg PO HS 02/25/19 Metoprolol Succinate [Toprol Xl] mg PO ASDIR 02/25/19 Polyethylene Glycol 3350 [Miralax (For Daily Use) -] 17 gm PO DAILY #1 bottle Anemia: No Asthma: Yes Cancer: No Cardiac Disorders: No CVA: No COPD: No CHF: No Dementia: No Diabetes: No GI Disorders: Yes (GASTRITIS, BILE DUCT STONES) Disorders: Yes (CYSTITIS, FREQUENCY) HTN: No Hypercholesterolemia: No Seizures: No Thyroid Disease: Yes (NODULE) - Surgical History Appendectomy: No Cardiac Surgery: No Cholecystectomy: Yes (2015 AND BILE DUCT) Gastric Stapling: Yes (GASTRIC SLEEVE) Lung Surgery: No Neurologic Surgery: No Orthopedic Surgery: No - Reproductive History (#): 2 Para: 1 Spontaneous : 1 - Immunization History Td Vaccination: (MAY 2014) Immunization Up to Date: Yes - Suicide/Smoking/Psychosocial Hx Smoking Status: No Smoking History: Never smoked Have you smoked in the past 12 months: No Number of Cigarettes Smoked Daily: 0 Information on smoking cessation initiated: No Hx Alcohol Use: No Drug/Substance Use Hx: No Substance Use Type: None Hx Substance Use Treatment: No Review of Systems - Review of Systems Able to Perform ROS?: Yes Comments:: 02/25/19 13:18 GENERAL/CONSTITUTIONAL: No fever or chills. No weakness. HEAD, EYES, EARS, NOSE AND THROAT: No change in vision. No ear pain or discharge. No sore throat. CARDIOVASCULAR: No chest pain or shortness of breath RESPIRATORY: No cough, wheezing, or hemoptysis. GASTROINTESTINAL: No vomiting, diarrhea or constipation. GENITOURINARY: No dysuria, frequency, or change in urination. MUSCULOSKELETAL: No joint or muscle swelling or pain. No neck or back pain. SKIN: No rash NEUROLOGIC: No headache, vertigo, loss of consciousness, or change in strength/ sensation. ENDOCRINE: No increased thirst. No abnormal weight change HEMATOLOGIC/LYMPHATIC: No anemia, easy bleeding, or history of blood clots. ALLERGIC/IMMUNOLOGIC: No hives or skin allergy. *Physical Exam - Vital Signs Last Vital Signs Temp Pulse Resp BP Pulse Ox 97.8 F 110 H 18 113/79 100 02/25/19 12:44 02/25/19 12:44 02/25/19 12:44 02/25/19 12:44 02/25/19 12:44 - Physical Exam Comments: 02/25/19 13:19 GENERAL: Awake, alert, and fully oriented, in no acute distress HEAD: No signs of trauma, normocephalic, atraumatic EYES: EOMI, sclera anicteric, conjunctiva clear ENT: oropharynx clear without exudates. Moist mucosa NECK: Normal ROM, supple LUNGS: No distress, speaks full sentences, clear to auscultation bilaterally HEART: Regular rate and rhythm, normal S1 and S2, no murmurs, rubs or gallops, peripheral pulses normal and equal bilaterally. ABDOMEN: Soft, nontender, generalized discomfort, normoactive bowel sounds. No guarding, no rebound. No masses EXTREMITIES : Normal inspection, Normal range of motion, no edema. No clubbing or cyanosis. NEUROLOGICAL: Cranial nerves II through XII grossly intact. Normal speech, no focal sensorimotor deficits SKIN: Warm, Dry, normal turgor, no rashes or lesions noted ED Treatment Course - LABORATORY CBC & Chemistry Diagram: 02/25/19 13:14 02/25/19 13:14 Medical Decision Making - Medical Decision Making 02/25/19 13:14 28 year old woman with cholecystectomy and lap band who prsents with 7 days of constant achy abdominal pain associated with nausea. ED Course: ddx ibnlt: uti vs pyelonephritis vs iup vs ectopic vs appendicitis vs pancreatitis vs sbo 02/25/19 15:03 labs wnl pending CTAP 02/25/19 16:27 CTAP with colonic fecal retention otherwise no acute changes from previous 2017 patient with rx miralax and increause fluids and fiber stable for dichsage. *DC/Admit/Observation/Transfer Diagnosis at time of Disposition: Abdominal pain, Constipation - Discharge Dispostion Disposition: HOME Condition at time of disposition: Stable Decision to Admit order: No - Prescriptions Prescriptions: Polyethylene Glycol 3350 [Miralax (For Daily Use) -] 17 gm PO DAILY #1 bottle - Referrals - Patient Instructions Printed Discharge Instructions: DI for Constipation Additional Instructions: You were seen in the ED for complaints of abdominal pain. In the ED you were evaluated with labwork and imaging. Your results showed fecal retention/ constipation. There does not appear to be an acute need for immediate hospitalization. You are advised to follow up with your Primary Care Physician within 1 week. You were given a prescription for Miralax and are advised to take one packet everyday for 10 days. Drink plenty of water and increase fruit and vegetable consumption. Return to the ED immediately if you experience worsening abdominal pain, inability to pass gas, blood in the stool, blood in the urine, nausea, vomiting or fever. - Post Discharge Activity Forms/Work/School Notes: Back to Work
[2019-02-25 13:16] LABS: HCG,QUALITATIVE URINE Negative
[2019-02-25 13:23] LABS: BASO % 0.9 % (0-2.0); EOS % 1.2 % (0-4.5); HEMATOCRIT 40.3 % (32.4-45.2); HEMOGLOBIN 13.3 GM/dl (10.7-15.3); LYMPH % 29.5 % (8-40); MCH 28.8 pg (25.7-33.7); MCHC 32.8 g/dl (32.0-36.0); MEAN CELL VOLUME 87.8 fl (80-96); MEAN PLT VOLUME 7.7 fl (7.5-11.1); MONO % 8.6 % (3.8-10.2); NEUT % 59.8 % (42.8-82.8); PLATELET COUNT 359 K/MM3 (134-434); RDW 12.1 % (11.6-15.6); WHITE BLOOD COUNT 4.9 K/mm3 (4.0-10.8)
[2019-02-25] MEDS ORDERED: ONDANSETRON 4 MG/2 ML VIAL IVPUSH ONE (13:35)
[2019-02-25 13:36] LABS: URINE APPEARANCE CLEAR; URINE BILIRUBIN NEGATIVE (NEGATIVE); URINE COLOR YELLOW; URINE GLUCOSE (UA) NEGATIVE (NEGATIVE); URINE KETONE NEGATIVE (NEGATIVE)
[2019-02-25 13:37] LABS: URINE LEUK ESTERASE NEGATIVE (NEGATIVE); URINE NITRITE NEGATIVE (NEGATIVE); URINE PROTEIN NEGATIVE (NEGATIVE); URINE UROBILINOGEN 0.2 (0.2-1.0)
[2019-02-25 13:37] LABS: ALK PHOS 95 U/L (45-117); ANION GAP 7 MMOL/L (8-16); BILIRUBIN,TOTAL 0.6 mg/dl (0.2-1); BLOOD UREA NITROGEN 13 mg/dl (7-18); CALCIUM 9.3 mg/dl (8.5-10); CHLORIDE 107 mmol/L (98-107); CO2 26 mmol/L (21-32); CREATININE 0.7 mg/dl (0.55-1.3); GLUCOSE,RANDOM 93 mg/dl (74-106); POTASSIUM 3.9 mmol/L (3.5-5.1); SGOT/AST 22 U/L (15-37); SGPT/ALT 9 U/L (13-61); SODIUM 140 mmol/L (136-145); TOT PROT 6.3 g/dl (6.4-8.2)
[2019-02-25] MEDS ORDERED: ONDANSETRON 4 MG/2 ML VIAL ONE (13:52)
--- NOTE | 2019-02-25 14:20 | PDOC ---
Attending Attestation - Resident Resident Name: Sophy Beth - ED Attending Attestation I have performed the following: I have examined & evaluated the patient, The case was reviewed & discussed with the resident, I agree w/resident's findings & plan, Exceptions are as noted - HPI HPI: 02/25/19 16:37 Reviewed Residents HPI - Physicial Exam PE: 02/25/19 16:37 Reviewed residents PE - Medical Decision Making 02/25/19 16:39 28 years old with past medical history significant for fibromyalgia migraines cholecystectomy LAP-BAND surgery ERCP presents to the ED with one- week of intermittent achy diffuse abdominal discomfort now predominantly on the right side No fever no nausea no vomiting Symptoms are moderate intermittent seem to come and go On physical examination abdomen mildly tender in the right side no rebound no guarding however given previous history of bowel during surgery a CT scan with oral and IV contrast was ordered She has no fever no elevated white blood cell count and the only finding on her CAT scan was moderate stool burden We'll recommend fluids more fruits and vegetables and ten-day course of MiraLAX Findings, the need for follow-up and strict return instructions discussed with patient.
[2019-02-25] MEDS ORDERED: METOCLOPRAMIDE HCL INJECTION 10 MG/2 ML VIAL IVPUSH ONE (14:48)
[2019-02-25] MEDS ORDERED: METOCLOPRAMIDE HCL INJECTION 10 MG/2 ML VIAL ONE (14:50)
[2019-02-25 16:49] VITALS: PULSE 89
== END 2019-02-25 16:50 | disposition home or self-care (01) ==
LOC: FER 12:44
PROC: 3E033GC Introduction of Other Therapeutic Substance into Peripheral Vein, Percutaneous Approach (ICD-10-PCS; principal; 2019-02-25)
DX: R10.84 Generalized abdominal pain (principal); K59.00 Constipation, unspecified; Z98.84 Bariatric surgery status
CPT/HCPCS: 36415; 74177-TC; 80053; 81003; 83690; 84703; 85025; 87086; 99285-25

== ENCOUNTER 2019-03-12 17:56 | Emergency (ER) | payer OTHER ==
--- NOTE | 2019-03-12 18:03 | PDOC ---
Rapid Medical Evaluation Chief Complaint: Respiratory Time Seen by Provider: 03/12/19 18:00 Medical Evaluation: Allergies Allergy/AdvReac Type Severity Reaction Status Date / Time ciprofloxacin [From Cipro] Allergy Severe anaphylaxis Verified 02/25/19 12:48 ciprofloxacin HCl Allergy Severe anaphylaxis Verified 02/25/19 12:48 [From Cipro] codeine [Codeine] Allergy Severe Swelling Verified 02/25/19 12:48 butalbital [From Fioricet] Allergy Vomiting Verified 02/25/19 12:48 caffeine [From Fioricet] Allergy Vomiting Verified 02/25/19 12:48 03/12/19 18:02 I have performed a brief in person evaluation at triage on this patient. CC: Fever/Tachy HPI: Pt has a history of sinus tachycardia treated with Metoprolol. Pt admits to feel like she is going to have a sycopal episode. PE: Skin: clear Lungs: clear Heart: tachy MS: Moves all extremities without difficulty Neuro: Alert and oriented Psych: Appropriate affect I have ordered: Influenza Pt will proceed to the main ED for further evaluation. Discharge Disposition - Diagnosis Fever - Referrals - Patient Instructions - Post Discharge Activity
[2019-03-12 18:04] VITALS: TEMP 99.7; BMI 32.0
[2019-03-12] MEDS ORDERED: SODIUM CHLORIDE 1,000 ML IV STA (18:34)
[2019-03-12] MEDS ORDERED: ACETAMINOPHEN 1000 MG/100 ML VIAL (NON FORMULARY) IVPB ONE (18:34)
--- NOTE | 2019-03-12 18:52 | PDOC ---
History of Present Illness - General Chief Complaint: Respiratory Stated Complaint: CHEST PAIN Time Seen by Provider: 03/12/19 18:00 - History of Present Illness Initial Comments: 03/12/19 18:42 27 year old female, with a significant past medical history of fibromyalgia, numerous ER visits and workups with Ct's, gastric sleeve bypass (December of 2015), cholecystectomy, ovarian cysts, pyelonephritis (1 year ago), frequent UTIs, asthma,and recent diagnostic laparoscopy for pelvic pain (2 months ago) who presents to the emergency department with, dizziness, "feeling like she's going to pass out" palpitations with associated chest pain. 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 Started course of nitrofurantoin since yesterday for UTI. After she started feeling her symptoms she took a metoprolol 50mg. Allergies: ciprofloxacin, ciprofloxacin HCl, codeine, butalbital, caffeine Primary Care Physician: Dr. Palacio Past History - Past Medical History Allergies/Adverse Reactions: Allergies Allergy/AdvReac Type Severity Reaction Status Date / Time ciprofloxacin [From Cipro] Allergy Severe anaphylaxis Verified 03/12/19 18:02 ciprofloxacin HCl Allergy Severe anaphylaxis Verified 03/12/19 18:02 [From Cipro] codeine [Codeine] Allergy Severe Swelling Verified 03/12/19 18:02 butalbital [From Fioricet] Allergy Vomiting Verified 03/12/19 18:02 caffeine [From Fioricet] Allergy Vomiting Verified 03/12/19 18:02 Home Medications: Ambulatory Orders Cyclobenzaprine HCl [Flexeril -] 10 mg PO HS 02/25/19 Gabapentin 300 mg PO DAILY 02/25/19 Meloxicam [Mobic] 15 mg PO HS 02/25/19 Metoprolol Succinate [Toprol Xl] 30 mg PO DAILY 02/25/19 Polyethylene Glycol 3350 [Miralax (For Daily Use) -] 17 gm PO DAILY #1 bottle Anemia: No Asthma: Yes Cancer: No Cardiac Disorders: Yes (sinus tachycardia) CVA: No COPD: No CHF: No Dementia: No Diabetes: No GI Disorders: Yes (GASTRITIS, BILE DUCT STONES) Disorders: Yes (CYSTITIS, FREQUENCY) HTN: No Hypercholesterolemia: No Seizures: No Thyroid Disease: Yes (NODULE) - Surgical History Appendectomy: No Cardiac Surgery: No Cholecystectomy: Yes (2015 AND BILE DUCT) Gastric Stapling: Yes (GASTRIC SLEEVE) Lung Surgery: No Neurologic Surgery: No Orthopedic Surgery: No - Reproductive History (#): 2 Para: 1 Spontaneous : 1 - Immunization History Td Vaccination: (MAY 2014) Immunization Up to Date: Yes - Suicide/Smoking/Psychosocial Hx Smoking Status: No Smoking History: Never smoked Have you smoked in the past 12 months: No Number of Cigarettes Smoked Daily: 0 Hx Alcohol Use: No Drug/Substance Use Hx: No Substance Use Type: None Hx Substance Use Treatment: No Review of Systems - Review of Systems Able to Perform ROS?: Yes Is the patient limited Congolese proficient: No Constitutional: No: Symptoms Reported HEENTM: No: Symptoms Reported Respiratory: No: Symptoms reported Cardiac (ROS): Yes: See HPI, Palpitations ABD/GI: Yes: Abdominal cramping : No: Symptoms Reported Integumentary: No: Symptoms Reported Neurological: Yes: See HPI Endocrine: No: Symptoms Reported *Physical Exam - Vital Signs Last Vital Signs Temp Pulse Resp BP Pulse Ox 99.7 F H 133 H 24 H 129/84 99 03/12/19 18:02 03/12/19 18:02 03/12/19 18:02 03/12/19 18:02 03/12/19 18:02 - Physical Exam General Appearance: Yes: Nourished, Appropriately Dressed, Other (diffivculty keeping her eye open, distracted by her symptoms. ). No: Apparent Distress HEENT: positive: EOMI, MARIA DE JESUS, Normal ENT Inspection Respiratory/Chest: positive: Lungs Clear, Normal Breath Sounds. negative: Chest Tender, Respiratory Distress Cardiovascular: positive: Regular Rhythm, S1, S2, Tachycardia Gastrointestinal/Abdominal: positive: Normal Bowel Sounds, Flat, Soft. negative : Tender Musculoskeletal: positive: Normal Inspection. negative: CVA Tenderness Extremity: positive: Normal Capillary Refill, Normal Inspection, Normal Range of Motion Integumentary: positive: Normal Color, Dry, Warm ED Treatment Course - LABORATORY CBC & Chemistry Diagram: 03/12/19 19:00 03/12/19 19:00 - ADDITIONAL ORDERS Additional order review: Laboratory Results 03/12/19 18:35 POC Glucometer 93 03/12/19 18:35 POC Glucometer 93 Medical Decision Making - Medical Decision Making 03/12/19 19:04 28f with palpitation and presyncope. thyroidism vs anxiety/hyperventilation infectious process vs medication side effect. All labs wnl. Normal EKG normal sinus rhythm. 03/12/19 20:22 Patient feels beter with tylenol and ns. Patient possibly was dehydrated vs interaction between nitrofurantoin and metoprolol? Ok to d/c with work note. *DC/Admit/Observation/Transfer Diagnosis at time of Disposition: Lightheadedness - Discharge Dispostion Disposition: HOME Condition at time of disposition: Improved Decision to Admit order: No - Referrals Referrals: Perez Palacio MD [Primary Care Provider] - - Patient Instructions Printed Discharge Instructions: DI for Dizziness-Nonvertigo Additional Instructions: Come back to the emergency department for any new, worsening or concerning symptom. Follow up with your primary care provider within the week if symptoms persist. Drink plenty of water. - Post Discharge Activity Forms/Work/School Notes: Back to Work
[2019-03-12 18:53] VITALS: BP 127/85; PULSE 97
[2019-03-12] MEDS ORDERED: ACETAMINOPHEN INJECTION 100 ML IVPB ONE (19:15)
[2019-03-12 19:16] LABS: BASO % 0.3 % (0-2.0); EOS % 0.1 % (0-4.5); HEMATOCRIT 37.9 % (32.4-45.2); HEMOGLOBIN 13.3 GM/dL (10.7-15.3); LYMPH % 7.1 % (8-40); MCH 30.1 pg (25.7-33.7); MCHC 35.1 g/dl (32.0-36.0); MEAN CELL VOLUME 85.7 fl (80-96); MEAN PLT VOLUME 7.9 fl (7.5-11.1); MONO % 5.5 % (3.8-10.2); PLATELET COUNT 315 K/MM3 (134-434); RBC 4.43 M/mm3 (3.60-5.2); RDW 12.5 % (11.6-15.6)
[2019-03-12 20:01] LABS: ALBUMIN 4.2 g/dl (3.4-5.0); ALK PHOS 109 U/L (45-117); ANION GAP 8 MMOL/L (8-16); BILIRUBIN,TOTAL 0.4 mg/dL (0.2-1); BLOOD UREA NITROGEN 10 mg/dL (7-18); CALCIUM 9.7 mg/dL (8.5-10.1); CHLORIDE 105 mmol/L (98-107); CO2 27 mmol/L (21-32); CREATININE 0.7 mg/dL (0.55-1.3); GLUCOSE,RANDOM 96 mg/dL (74-106); POTASSIUM 3.7 mmol/L (3.5-5.1); SGOT/AST 16 U/L (15-37); SGPT/ALT 13 U/L (13-61); SODIUM 140 mmol/L (136-145)
--- NOTE | 2019-03-13 10:34 | EKG ---
Test Reason : Blood Pressure : / mmHG Vent. Rate : 095 BPM Atrial Rate : 095 BPM P-R Int : 134 ms QRS Dur : 082 ms QT Int : 340 ms P-R-T Axes : 057 076 033 degrees QTc Int : 427 ms NORMAL SINUS RHYTHM NORMAL ECG WHEN COMPARED WITH ECG OF 17-DEC-2018 22:17, NO SIGNIFICANT CHANGE WAS FOUND Confirmed by ZACKERY GUSTAFSON MD ([id number]) on 03/13/2019 10:33:39 AM Referred By: Confirmed By:ZACKERY GUSTAFSON MD
== END 2019-03-12 20:39 | disposition home or self-care (01) ==
LOC: JER 17:56
PROC: 3E033NZ Introduction of Analgesics, Hypnotics, Sedatives into Peripheral Vein, Percutaneous Approach (ICD-10-PCS; principal; 2019-03-12)
DX: R42 Dizziness and giddiness (principal); M79.7 Fibromyalgia
CPT/HCPCS: 36415; 80053; 82962; 84439; 84443; 84481; 84703; 85025; 87804; 93005; 93010; 99283-25; J0131; J7030

== ENCOUNTER 2020-02-02 20:48 | Emergency (ER) | payer OTHER ==
[2020-02-02 21:09] VITALS: BP 156/81; PULSE 118; TEMP 99
--- NOTE | 2020-02-02 21:23 | PDOC ---
History of Present Illness - General Chief Complaint: Respiratory Stated Complaint: R/O COVID Time Seen by Provider: 02/02/20 21:10 History Source: Patient Exam Limitations: Clinical Condition - History of Present Illness Initial Comments: 02/02/20 21:16 Patient with h/o Asthma and cardiac arrhythmia present with complains of 4 days h/o fever, cough, SOB, intermittent wheezing and CP from coughing. 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 pt Denies any known exposure to covid disease. Denies dizziness, palpitations, numbness or tingling sensation, N/V. pt report taking Tylenol an hour ago. Denies any other symptoms Is this a multiple visit Asthma Patient?: No Timing/Duration: other (4 days) Past History - Past Medical History Allergies/Adverse Reactions: Allergies Allergy/AdvReac Type Severity Reaction Status Date / Time ciprofloxacin [From Cipro] Allergy Severe anaphylaxis Verified 03/12/19 18:02 ciprofloxacin HCl Allergy Severe anaphylaxis Verified 03/12/19 18:02 [From Cipro] codeine [Codeine] Allergy Severe Swelling Verified 03/12/19 18:02 butalbital [From Fioricet] Allergy Vomiting Verified 03/12/19 18:02 caffeine [From Fioricet] Allergy Vomiting Verified 03/12/19 18:02 Home Medications: Ambulatory Orders Cyclobenzaprine HCl [Flexeril -] 10 mg PO HS 02/25/19 Gabapentin 300 mg PO DAILY 02/25/19 Meloxicam [Mobic] 15 mg PO HS 02/25/19 Metoprolol Succinate [Toprol Xl] 30 mg PO DAILY 02/25/19 Polyethylene Glycol 3350 [Miralax (For Daily Use) -] 17 gm PO DAILY #1 bottle 02/25/19 Azithromycin [Zithromax 250mg Tablets -] 250 mg PO UTDICT #6 tab 02/02/20 Benzonatate [Tessalon Pearls -] 100 mg PO Q8H PRN #21 capsule 02/02/20 Methylprednisolone [Medrol Dose Kaleb] 4 mg PO ASDIR #21 tablet 02/02/20 Anemia: No Asthma: Yes Cancer: No Cardiac Disorders: Yes (sinus tachycardia) CVA: No COPD: No CHF: No Dementia: No Diabetes: No GI Disorders: Yes (GASTRITIS, BILE DUCT STONES) Disorders: Yes (CYSTITIS, FREQUENCY) HTN: No Hypercholesterolemia: No Seizures: No Thyroid Disease: Yes (NODULE) - Surgical History Appendectomy: No Cardiac Surgery: No Cholecystectomy: Yes (2015 AND BILE DUCT) Gastric Stapling: Yes (GASTRIC SLEEVE) Lung Surgery: No Neurologic Surgery: No Orthopedic Surgery: No - Reproductive History (#): 2 Para: 1 Spontaneous : 1 - Immunization History Td Vaccination: (MAY 2014) Immunization Up to Date: Yes - Psycho Social/Smoking Cessation Hx Smoking Status: No Smoking History: Never smoked Have you smoked in the past 12 months: No Number of Cigarettes Smoked Daily: 0 Hx Alcohol Use: No Drug/Substance Use Hx: No Substance Use Type: None Hx Substance Use Treatment: No Review of Systems - Review of Systems Able to Perform ROS?: Yes Is the patient limited Mohawk proficient: No Constitutional: Yes: Chills, Fever, Malaise HEENTM: Yes: Symptoms Reported, See HPI, Nose Congestion. No: Eye Pain, Blurred Vision, Tearing, Recent change in vision, Double Vision, Cataracts, Ear Pain, Ocular Prothesis, Ear Discharge, Nose Pain, Tinnitus, Nose Bleeding, Hearing Loss, Throat Pain, Throat Swelling, Mouth Pain, Dental Problems, Difficulty Swallowing, Mouth Swelling, Other Respiratory: Yes: Symptoms reported, See HPI, Cough, Shortness of Breath. No: Orthopnea, SOB with Exertion, SOB at Rest, Stridor, Wheezing, Productive cough, Hemoptysis, Other Cardiac (ROS): Yes: Symptoms Reported, See HPI, Chest Pain (intermittent). No: Edema, Irregular Heart Rate, Lightheadedness, Palpitations, Syncope, Chest Tightness, Other ABD/GI: No: Symptoms Reported, Constipated, Diarrhea, Nausea, Poor Appetite, Vomiting, Indigestion, Abdominal cramping Musculoskeletal: No: Symptoms Reported Integumentary: No: Symptoms Reported, Rash Neurological: Yes: Symptoms reported, Headache. No: Weakness, Dizziness All Other Systems: Reviewed and Negative *Physical Exam - Vital Signs Last Vital Signs Temp Pulse Resp BP Pulse Ox 99.0 F 118 H 20 156/81 100 02/02/20 21:07 02/02/20 21:07 02/02/20 21:07 02/02/20 21:07 02/02/20 21:07 - Physical Exam General Appearance: Yes: Nourished, Appropriately Dressed. No: Apparent Distress HEENT: positive: MARIA DE JESUS, Normal ENT Inspection, Pharynx Normal Neck: positive: Supple Respiratory/Chest: positive: Lungs Clear, Normal Breath Sounds. negative: Chest Tender, Respiratory Distress, Accessory Muscle Use Cardiovascular: positive: Regular Rhythm, Regular Rate. 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 pt Denies any known exposure to covid disease. Denies dizziness, palpitations, numbness or tingling sensation, N/V. pt report taking Tylenol an hour ago. Denies any other symptoms Clinical exam significant for mild diffused inspiratory wheeze in NAD. normal cardio exam. Pt with low grade fever. A/P: 29yo with 4 days of URI symptoms and SOB given pt symptoms, EKG ordered will test for covid CXR ordered for r/o PNA rapid flu ordered Tx based on CXR and EKG results 02/02/20 22:16 CXR shows no PNA. pt sick looking and will d/c on zpak, tessalon perles with advice to Take antipyretics as needed for fever, Increase fluid intake with strict quarantine instructions pending covid results Discharge - Discharge Information Problems reviewed: Yes Clinical Impression/Diagnosis: URI with cough and congestion, Fever and chills Condition: Stable Disposition: HOME - Admission No - Additional Discharge Information Prescriptions: Methylprednisolone [Medrol Dose Kaleb] 4 mg PO ASDIR #21 tablet Benzonatate [Tessalon Pearls -] 100 mg PO Q8H PRN #21 capsule PRN Reason: Cough Azithromycin [Zithromax 250mg Tablets -] 250 mg PO UTDICT #6 tab - Follow up/Referral Referrals: Perez Palacio MD [Primary Care Provider] - - Patient Discharge Instructions Patient Printed Discharge Instructions: [facility]-Coronavirus Instructions Additional Instructions: Your chest x-ray shows no pneumonia. Take prescribed medications as prescribed. Increase fluid intake. Take Tylenol as needed for fever. wear mask at all times and refrain from public gatherings until no fever for at least 24hours - Post Discharge Activity Work/Back to School Note: Back to Work
--- NOTE | 2020-02-03 10:15 | EKG ---
Test Reason : Blood Pressure : / mmHG Vent. Rate : 104 BPM Atrial Rate : 104 BPM P-R Int : 134 ms QRS Dur : 078 ms QT Int : 318 ms P-R-T Axes : 053 071 018 degrees QTc Int : 418 ms SINUS TACHYCARDIA POSSIBLE LEFT ATRIAL ENLARGEMENT BORDERLINE ECG WHEN COMPARED WITH ECG OF 12-MAR-2019 17:58, NO SIGNIFICANT CHANGE WAS FOUND Confirmed by Doyle Mott ([id number]) on 02/03/2020 10:15:30 AM Referred By: Confirmed By:Doyle Mott
== END 2020-02-02 22:32 | disposition home or self-care (01) ==
LOC: JER 20:48
DX: J06.9 Acute upper respiratory infection, unspecified (principal); J45.909 Unspecified asthma, uncomplicated; I49.9 Cardiac arrhythmia, unspecified; Z87.448 Personal history of other diseases of urinary system; Z87.19 Personal history of other diseases of the digestive system; Z98.84 Bariatric surgery status; Z90.49 Acquired absence of other specified parts of digestive tract; Z88.1 Allergy status to other antibiotic agents; Z88.8 Allergy status to other drugs, medicaments and biological substances; Z88.5 Allergy status to narcotic agent
CPT/HCPCS: 71045-TC-FY; 87798; 87804; 93005; 93010; 99284-25; U0002

== ENCOUNTER 2020-11-19 14:45 | Emergency (ER) | payer OTHER ==
[2020-11-19 15:36] VITALS: BP 114/75; PULSE 78; TEMP 98.1; BMI 33.8
[2020-11-19] MEDS ORDERED: ONDANSETRON 4 MG/2 ML VIAL IVPUSH ONE (16:51)
[2020-11-19] MEDS ORDERED: ACETAMINOPHEN 1000 MG/100 ML BAG IVPB ONE (16:51)
[2020-11-19] MEDS ORDERED: SODIUM CHLORIDE 0.9% 500 ML INFUS.BAG IV ONE (16:51)
[2020-11-19] MEDS ORDERED: DEXTROSE 5%-NORMAL SALINE 1,000 ML IV ONE ×3 (17:04→19:37)
[2020-11-19 17:30] LABS: BASO % 0.3 % (0-2.0); EOS % 0.5 % (0-4.5); HEMATOCRIT 37.2 % (32.4-45.2); LYMPH % 17.8 % (8-40); MCH 29.1 pg (25.7-33.7); MCHC 34.9 g/dl (32.0-36.0); MEAN CELL VOLUME 83.4 fl (80-96); MEAN PLT VOLUME 8.3 fl (7.5-11.1); MONO % 8.1 % (3.8-10.2); NEUT % 73.3 % (42.8-82.8); PLATELET COUNT 313 K/MM3 (134-434); RBC 4.46 M/mm3 (3.60-5.2); RDW 13.4 % (11.6-15.6); WHITE BLOOD COUNT 7.2 K/mm3 (4.0-10.0)
[2020-11-19 17:58] LABS: CALCIUM 9.2 mg/dL (8.5-10.1)
[2020-11-19 17:59] LABS: ALBUMIN 3.6 g/dl (3.4-5.0); BLOOD UREA NITROGEN 7.7 mg/dL (7-18)
[2020-11-19 18:02] LABS: CREATININE 0.6 mg/dL (0.55-1.3)
[2020-11-19] MEDS ORDERED: ACETAMINOPHEN INJECTION 100 ML IVPB ONE (18:02)
[2020-11-19 18:03] LABS: BILIRUBIN,TOTAL 0.5 mg/dL (0.2-1)
[2020-11-19] MEDS ORDERED: ONDANSETRON 4 MG/2 ML VIAL ONE (18:03)
[2020-11-19 18:04] LABS: URINE APPEARANCE Clear; URINE BILIRUBIN Negative (NEGATIVE); URINE COLOR Yellow; URINE GLUCOSE (UA) Negative (NEGATIVE); URINE KETONE 4+ (NEGATIVE); URINE LEUK ESTERASE Negative (NEGATIVE); URINE NITRITE Negative (NEGATIVE); URINE PROTEIN Negative (NEGATIVE); URINE UROBILINOGEN 0.2 mg/dL (0.2-1.0)
[2020-11-19] MEDS ORDERED: METOCLOPRAMIDE HCL INJECTION 10 MG/2 ML VIAL IVPUSH ONE (19:36)
[2020-11-19] MEDS ORDERED: METOCLOPRAMIDE HCL INJECTION 10 MG/2 ML VIAL ONE (20:49)
== END 2020-11-19 23:42 | disposition home or self-care (01) ==
LOC: JER 14:45
PROC: 3E033NZ Introduction of Analgesics, Hypnotics, Sedatives into Peripheral Vein, Percutaneous Approach (ICD-10-PCS; principal; 2020-11-19)
PROC: 3E033GC Introduction of Other Therapeutic Substance into Peripheral Vein, Percutaneous Approach (ICD-10-PCS; 2020-11-19)
PROC: 3E0337Z Introduction of Electrolytic and Water Balance Substance into Peripheral Vein, Percutaneous Approach (ICD-10-PCS; 2020-11-19)
DX: O21.1 Hyperemesis gravidarum with metabolic disturbance (principal); R11.2 Nausea with vomiting, unspecified
CPT/HCPCS: 36415; 80053; 81003; 85025; 87086; 99285-25; C9803; J0131; U0003

== ENCOUNTER 2021-05-17 02:18 | Inpatient (IN) | payer OTHER ==
[2021-05-17] MEDS ORDERED: AMPICILLIN SODIUM 2 GM VIAL ONE (02:50)
[2021-05-17] MEDS ORDERED: LIDOCAINE HCL 1% PRESERVATIVE FREE - 30ML VIAL ONE (02:54)
[2021-05-17] MEDS ORDERED: OXYTOCIN 20 UNITS in 0.9% NS 20 UNIT/1,000 ML INFUS.BAG IV ONE ×2 (02:54→05:51)
[2021-05-17] MEDS ORDERED: OXYTOCIN 10 UNITS/ML VIAL ONE (02:59)
[2021-05-17] MEDS ORDERED: IBUPROFEN 600 MG TABLET (FP) PO ONE (03:23)
[2021-05-17] MEDS ORDERED: ACETAMINOPHEN 325 MG TABLET (FP) ONE (03:23)
[2021-05-17] MEDS: IBUPROFEN 600 MG TABLET (FP) PO PRN ×4 (03:25→20:23)
[2021-05-17] MEDS: OXYTOCIN 20 UNITS in 0.9% NS 20 UNIT/1,000 ML INFUS.BAG IV SCH ×2 (03:25→05:55)
[2021-05-17] MEDS: ACETAMINOPHEN 325 MG TABLET (FP) PO PRN ×3 (03:25→20:23)
[2021-05-17] MEDS ORDERED: DEXTROSE 5%-LACTATED RINGERS 1,000 ML IV SCH (03:30)
[2021-05-17] MEDS ORDERED: BISACODYL 10 MG SUPP.RECT RC PRN (03:42)
[2021-05-17] MEDS ORDERED: METHYLERGONOVINE MALEATE 0.2 MG/1 ML AMP IM PRN (03:42)
[2021-05-17] MEDS ORDERED: BENZOCAINE 20% 57 GM BOTTLE TP PRN (03:42)
[2021-05-17] MEDS ORDERED: BENZOCAINE 28 GM HEMORRHOIDAL OINTMENT TP PRN (03:42)
[2021-05-17] MEDS ORDERED: WITCH HAZEL 50% (TUCKS) 40 PAD/JAR PAD TP PRN (03:42)
[2021-05-17] MEDS ORDERED: OXYTOCIN 10 UNITS/ML VIAL IM ONE (03:47)
[2021-05-17 04:04] LABS: BASO % 0.5 % (0-2.0); EOS % 1.1 % (0-4.5); HEMATOCRIT 29.8 % (32.4-45.2); HEMOGLOBIN 9.9 GM/dL (10.7-15.3); LYMPH % 23.9 % (8-40); MCH 25.4 pg (25.7-33.7); MCHC 33.2 g/dl (32.0-36.0); MEAN CELL VOLUME 76.6 fl (80-96); MEAN PLT VOLUME 8.2 fl (7.5-11.1); MONO % 9.4 % (3.8-10.2); NEUT % 65.1 % (42.8-82.8); PLATELET COUNT 384 10^3/uL (134-434); RBC 3.88 M/mm3 (3.60-5.2); RDW 15.1 % (11.6-15.6); WHITE BLOOD COUNT 11.1 K/mm3 (4.0-10.0)
[2021-05-17 04:31] LABS: ALBUMIN 2.9 g/dl (3.4-5.0)
[2021-05-17 04:32] LABS: BLOOD UREA NITROGEN 7.8 mg/dL (7-18)
[2021-05-17 04:35] LABS: CREATININE 0.6 mg/dL (0.55-1.3)
[2021-05-17 04:36] LABS: BILIRUBIN,TOTAL 0.4 mg/dL (0.2-1); TOT PROT 6.6 g/dl (6.4-8.2)
[2021-05-17 04:44] LABS: INR 0.79 (0.83-1.09); PROTHROMBIN TIME (PATIENT) 9.6 SEC (9.7-13.0)
[2021-05-17 04:52] VITALS: BMI 35.4
[2021-05-17] MEDS ORDERED: ACETAMINOPHEN 1000 MG/100 ML VIAL (NON FORMULARY) IVPB PRN (06:45)
[2021-05-17] MEDS: oxyCODONE HCL 5 MG TABLET PO PRN ×2 (09:07→15:45)
[2021-05-17] MEDS: PRENATAL VITAMINS W/ FOLIC ACID TABLET (FP) PO SCH (09:07)
[2021-05-17] MEDS ORDERED: PNEUMOCOCCAL 23 VACCINE 0.5 ML VIAL IM ONE (10:00)
[2021-05-17] MEDS ORDERED: DIPHTH,PERTUSS(ACELL),TET 0.5 ML DISP.SYRIN IM ONE (10:00)
[2021-05-17] MEDS ORDERED: PNEUMOC 13-VAL CONJ-DIP CRM/PF 0.5 ML DISP.SYRIN IM ONE (10:00)
[2021-05-17 10:33] LABS: HIV INTERPRETATION NEGATIVE (NEGATIVE)
[2021-05-17] MEDS: FAMOTIDINE 20 MG TABLET PO PRN (23:25)
[2021-05-18] MEDS: ACETAMINOPHEN 325 MG TABLET (FP) PO PRN ×3 (05:58→19:55)
[2021-05-18] MEDS: IBUPROFEN 600 MG TABLET (FP) PO PRN ×3 (05:59→19:56)
[2021-05-18 08:39] LABS: BASO % 0.5 % (0-2.0); EOS % 2.9 % (0-4.5); HEMATOCRIT 25.8 % (32.4-45.2); HEMOGLOBIN 8.6 GM/dL (10.7-15.3); MCH 25.7 pg (25.7-33.7); MCHC 33.4 g/dl (32.0-36.0); MEAN CELL VOLUME 76.9 fl (80-96); MEAN PLT VOLUME 7.9 fl (7.5-11.1); MONO % 7.1 % (3.8-10.2); NEUT % 65.5 % (42.8-82.8); PLATELET COUNT 276 10^3/uL (134-434); RBC 3.36 M/mm3 (3.60-5.2); RDW 14.7 % (11.6-15.6); WHITE BLOOD COUNT 7.7 K/mm3 (4.0-10.0)
[2021-05-18] MEDS: PRENATAL VITAMINS W/ FOLIC ACID TABLET (FP) PO SCH (09:10)
[2021-05-18] MEDS: FAMOTIDINE 20 MG TABLET PO PRN (21:20)
[2021-05-18] MEDS ORDERED: SENNOSIDES/DOCUSATE COMBO (SENNA PLUS) TABLET (UD) PO PRN (22:00)
[2021-05-19] MEDS: ACETAMINOPHEN 325 MG TABLET (FP) PO PRN ×3 (03:59→12:43)
[2021-05-19] MEDS: IBUPROFEN 600 MG TABLET (FP) PO PRN ×3 (04:00→12:43)
[2021-05-19] MEDS: PRENATAL VITAMINS W/ FOLIC ACID TABLET (FP) PO SCH ×2 (08:05→09:07)
[2021-05-19 10:08] VITALS: BP 131/79; PULSE 62; TEMP 97.8
== END 2021-05-19 15:45 | disposition home or self-care (01) | DRG 560 ==
LOC: JDEL 02:18 → JLDR 02:40 → J3W 05:26
PROVIDERS: ADMIT Obstetrics & Gynecology; ATTEND Obstetrics & Gynecology
PROC: 0UQMXZZ Repair Vulva, External Approach (ICD-10-PCS; principal; 2021-05-17)
PROC: 10E0XZZ Delivery of Products of Conception, External Approach (ICD-10-PCS; 2021-05-17)
DX: O71.82 Other specified trauma to perineum and vulva (principal); Z3A.35 35 weeks gestation of pregnancy; Z37.0 Single live birth
CPT/HCPCS: 36415; 59409; 80053; 85025; 85461; 85610; 85730; 86762; 86780; 86850; 86870; 86900; 86901; 86902; 86999; 87340; 87389; 90715; 90732; C9803; G0009; J0131; U0003; U0005

== ENCOUNTER 2023-10-17 04:01 | Day surgery (SDC) | payer OTHER ==
[2023-10-16 17:47] VITALS: BMI 30.9
[2023-10-17] MEDS ORDERED: MIDAZOLAM HCL 2 MG/2 ML SINGLE DOSE VIAL ONE (08:56)
[2023-10-17] MEDS ORDERED: LIDOCAINE HCL/PF 2% SDV 5ML VIAL ONE (08:56)
[2023-10-17] MEDS ORDERED: FENTANYL CITRATE/PF 50 MCG/ML VIAL ONE ×2 (08:56→10:38)
[2023-10-17] MEDS ORDERED: PROPOFOL 20 ML ONE (08:56)
[2023-10-17] MEDS ORDERED: ONDANSETRON 4 MG/2 ML VIAL ONE (08:56)
[2023-10-17] MEDS ORDERED: DEXAMETHASONE SOD PHOSPHATE 4 MG/1 ML VIAL ONE (08:56)
[2023-10-17] MEDS ORDERED: ACETAMINOPHEN 1000 MG/100 ML BAG IVPB ONE (10:13)
[2023-10-17] MEDS ORDERED: ONDANSETRON 4 MG/2 ML VIAL IVPUSH PRN ×2 (10:13→10:18)
[2023-10-17] MEDS ORDERED: LACTATED RINGERS SOLUTION 1,000 ML IV SCH (10:15)
[2023-10-17] MEDS ORDERED: ACETAMINOPHEN INJECTION 100 ML IVPB ONE (10:17)
[2023-10-17] MEDS ORDERED: oxyCODONE HCL 5 MG TABLET PO PRN (10:18)
[2023-10-17] MEDS ORDERED: IBUPROFEN 800 MG/8 ML IJ IVPB PRN (10:18)
[2023-10-17] MEDS ORDERED: IBUPROFEN 600 MG TABLET (FP) PO PRN (10:18)
[2023-10-17] MEDS ORDERED: ELECTROLYTE-148 SOLN 1,000 ML IV SCH (10:30)
[2023-10-17 12:07] VITALS: RESP 18
[2023-10-17 12:45] VITALS: BP 114/51; PULSE 71; TEMP 97.8
== END 2023-10-17 12:45 | disposition home or self-care (01) ==
LOC: JASU-SURG 04:01
PROVIDERS: ATTEND Obstetrics & Gynecology
PROC: 0UB98ZZ Excision of Uterus, Via Natural or Artificial Opening Endoscopic (ICD-10-PCS; principal; 2023-10-17 08:30)
DX: N93.9 Abnormal uterine and vaginal bleeding, unspecified (principal); N84.0 Polyp of corpus uteri
CPT/HCPCS: 81025; 88305-TC; 94760

== ENCOUNTER 2024-04-26 09:28 | Emergency (ER) | payer OTHER ==
[2024-04-26 09:44] VITALS: TEMP 98.5; BMI 33.3
[2024-04-26] MEDS ORDERED: ONDANSETRON 4 MG/2 ML VIAL ONE (10:40)
[2024-04-26] MEDS ORDERED: ACETAMINOPHEN INJECTION 100 ML IVPB ONE (10:40)
[2024-04-26 10:45] LABS: BASO % 0.4 % (0-2.0); EOS % 1.2 % (0-4.5); HEMOGLOBIN 13.7 GM/dL (10.7-15.3); LYMPH % 21.8 % (8-40); MCH 29.1 pg (25.7-33.7); MCHC 35.1 g/dl (32.0-36.0); MEAN CELL VOLUME 83.1 fl (80-96); MEAN PLT VOLUME 7.4 fl (7.5-11.1); MONO % 9.9 % (3.8-10.2); NEUT % 66.7 % (42.8-82.8); PLATELET COUNT 331 10^3/uL (134-434); RBC 4.69 M/mm3 (3.60-5.2); RDW 13.4 % (11.6-15.6); WHITE BLOOD COUNT 5.6 K/mm3 (4.0-10.0)
[2024-04-26] MEDS: ONDANSETRON 4 MG/2 ML VIAL IVPUSH ONE (10:45)
[2024-04-26] MEDS: SODIUM CHLORIDE 0.9% 500 ML INFUS.BAG IV ONE (10:45)
[2024-04-26] MEDS: ACETAMINOPHEN 1000 MG/100 ML BAG IVPB ONE (10:45)
[2024-04-26 10:48] LABS: HCG,QUALITATIVE URINE Negative
[2024-04-26 10:54] LABS: PH,URINE 5.5 (5.0-8.0); URINE APPEARANCE CLEAR; URINE BILIRUBIN NEGATIVE (NEGATIVE); URINE COLOR YELLOW; URINE GLUCOSE (UA) NEGATIVE (NEGATIVE); URINE KETONE NEGATIVE (NEGATIVE); URINE LEUK ESTERASE NEGATIVE (NEGATIVE); URINE NITRITE NEGATIVE (NEGATIVE); URINE PROTEIN NEGATIVE (NEGATIVE); URINE UROBILINOGEN 0.2 mg/dL (0.2-1.0)
[2024-04-26 11:16] LABS: CHLORIDE 109 mmol/L (98-107); POTASSIUM 4.4 mmol/L (3.5-5.1); SODIUM 140 mmol/L (136-145)
[2024-04-26 11:18] LABS: ANION GAP 3 mmol/L (4-13); BLOOD UREA NITROGEN 10.7 mg/dL (7-18); CALCIUM 9.1 mg/dL (8.5-10.1); CO2 29 mmol/L (21-32); GLUCOSE,RANDOM 77 mg/dL (74-106)
[2024-04-26 11:19] LABS: ALBUMIN 3.7 g/dl (3.4-5.0)
[2024-04-26 11:21] LABS: CREATININE 0.6 mg/dL (0.55-1.3); SGOT/AST 20 U/L (15-37); SGPT/ALT 11 U/L (13-61)
[2024-04-26 11:23] LABS: BILIRUBIN,TOTAL 0.5 mg/dL (0.2-1); TOT PROT 6.3 g/dl (6.4-8.2)
[2024-04-26 11:24] LABS: ALK PHOS 81 U/L (45-117)
[2024-04-26] MEDS ORDERED: KETOROLAC TROMETHAMINE 30 MG/1 ML VIAL ONE (13:00)
[2024-04-26] MEDS: KETOROLAC TROMETHAMINE 30 MG/1 ML VIAL IVPUSH ONE (13:02)
[2024-04-26 13:59] VITALS: BP 116/68; PULSE 70; RESP 16
== END 2024-04-26 14:30 | disposition home or self-care (01) ==
LOC: JER 09:28
DX: R10.31 Right lower quadrant pain (principal); N83.209 Unspecified ovarian cyst, unspecified side; K76.89 Other specified diseases of liver
CPT/HCPCS: 36415; 74177-TC; 76830-TC; 80053; 81003; 84702; 84703; 85025; 86850; 86900; 86901; 87086; 99283-25; J0131; Q9967

== ENCOUNTER 2024-05-20 11:24 | Emergency (ER) | payer OTHER ==
[2024-05-20 11:32] VITALS: BP 110/72; PULSE 79; RESP 20; TEMP 98.2; BMI 32.7
[2024-05-20] MEDS: IBUPROFEN 400 MG TABLET (FP) PO ONE (13:11)
[2024-05-20] MEDS: IBUPROFEN 600 MG TABLET (FP) PO ONE (13:11)
[2024-05-20] MEDS ORDERED: METHOCARBAMOL 500 MG TABLET ONE (13:13)
[2024-05-20] MEDS ORDERED: KETOROLAC TROMETHAMINE 15 MG/ML VIAL ONE (13:13)
[2024-05-20] MEDS: SODIUM CHLORIDE 0.9% 500 ML INFUS.BAG IV ONE (13:21)
[2024-05-20] MEDS: KETOROLAC TROMETHAMINE 15 MG/ML VIAL IVPUSH ONE (13:21)
[2024-05-20] MEDS: METHOCARBAMOL 750 MG TAB PO ONE (13:21)
[2024-05-20 13:22] LABS: BASO % 0.4 % (0-2.0); EOS % 0.9 % (0-4.5); HEMATOCRIT 38.8 % (32.4-45.2); HEMOGLOBIN 13.6 GM/dL (10.7-15.3); LYMPH % 31.4 % (8-40); MCH 29.4 pg (25.7-33.7); MCHC 35.1 g/dl (32.0-36.0); MEAN CELL VOLUME 83.7 fl (80-96); MEAN PLT VOLUME 7.9 fl (7.5-11.1); MONO % 10.6 % (3.8-10.2); NEUT % 56.7 % (42.8-82.8); PLATELET COUNT 303 10^3/uL (134-434); RBC 4.63 M/mm3 (3.60-5.2); WHITE BLOOD COUNT 4.7 K/mm3 (4.0-10.0)
[2024-05-20 13:33] LABS: POTASSIUM 4.3 mmol/L (3.5-5.1)
[2024-05-20 13:35] LABS: ALBUMIN 3.7 g/dl (3.4-5.0); BLOOD UREA NITROGEN 7.7 mg/dL (7-18); CALCIUM 8.7 mg/dL (8.5-10.1)
[2024-05-20 13:38] LABS: CREATININE 0.7 mg/dL (0.55-1.3)
[2024-05-20 13:41] LABS: BILIRUBIN,TOTAL 0.6 mg/dL (0.2-1); TOT PROT 6.7 g/dl (6.4-8.2)
== END 2024-05-20 14:52 | disposition home or self-care (01) ==
LOC: JER 11:24
PROC: 3E0333Z Introduction of Anti-inflammatory into Peripheral Vein, Percutaneous Approach (ICD-10-PCS; principal; 2024-05-20)
DX: R07.1 Chest pain on breathing (principal); M25.512 Pain in left shoulder; J11.1 Influenza due to unidentified influenza virus with other respiratory manifestations; R53.83 Other fatigue; R05.9 Cough, unspecified
CPT/HCPCS: 36415; 71045-TC-FY; 80053; 84484; 84703; 85025; 93005; 93010; 99285-25

== ENCOUNTER 2024-08-14 12:23 | Emergency (ER) | payer OTHER ==
[2024-08-14 12:39] VITALS: BP 115/72; PULSE 83; RESP 16; TEMP 98.9; BMI 30.9
[2024-08-14 14:57] LABS: EPI CELLS 7 /uL (0-25.1); HYALINE CASTS 1 /uL (0-3.1); PH,URINE 5.5 (5.0-8.0); URINE APPEARANCE CLEAR; URINE BACTERIA 0 /uL (0-1359); URINE BILIRUBIN NEGATIVE (NEGATIVE); URINE COLOR DK YELLOW; URINE GLUCOSE (UA) NEGATIVE (NEGATIVE); URINE KETONE TRACE (NEGATIVE); URINE LEUK ESTERASE NEGATIVE (NEGATIVE); URINE NITRITE NEGATIVE (NEGATIVE); URINE PROTEIN 1+ (NEGATIVE); URINE RBC 6 /uL (0-23.9); URINE WBC 7 /uL (0-25.8)
[2024-08-14 15:02] LABS: INR 0.94 (0.83-1.09); PROTHROMBIN TIME (PATIENT) 10.8 SEC (9.7-13.0)
[2024-08-14 15:05] LABS: ACTIVATED PTT 28.2 SECONDS (25.2-36.5)
[2024-08-14 15:07] LABS: BASO % 0.6 % (0-2.0); EOS % 0.8 % (0-4.5); HEMATOCRIT 38.8 % (32.4-45.2); HEMOGLOBIN 13.3 GM/dL (10.7-15.3); LYMPH % 28.7 % (8-40); MCH 28.8 pg (25.7-33.7); MCHC 34.3 g/dl (32.0-36.0); MEAN CELL VOLUME 83.9 fl (80-96); MEAN PLT VOLUME 7.8 fl (7.5-11.1); MONO % 10.4 % (3.8-10.2); NEUT % 59.5 % (42.8-82.8); PLATELET COUNT 312 10^3/uL (134-434); RBC 4.62 M/mm3 (3.60-5.2); RDW 12.7 % (11.6-15.6); WHITE BLOOD COUNT 4.7 K/mm3 (4.0-10.0)
[2024-08-14 15:13] LABS: ALBUMIN 3.8 g/dl (3.4-5.0); BLOOD UREA NITROGEN 7.1 mg/dL (7-18); CALCIUM 9.4 mg/dL (8.5-10.1)
[2024-08-14 15:17] LABS: CREATININE 0.9 mg/dL (0.55-1.3)
[2024-08-14 15:18] LABS: BILIRUBIN,TOTAL 0.4 mg/dL (0.2-1); TOT PROT 6.4 g/dl (6.4-8.2)
[2024-08-14] MEDS ORDERED: KETOROLAC TROMETHAMINE 15 MG/ML VIAL ONE (15:41)
[2024-08-14] MEDS: KETOROLAC TROMETHAMINE 15 MG/ML VIAL IVPUSH ONE (15:57)
== END 2024-08-14 15:59 | disposition home or self-care (01) ==
LOC: JER 12:23
PROC: 3E0333Z Introduction of Anti-inflammatory into Peripheral Vein, Percutaneous Approach (ICD-10-PCS; principal; 2024-08-14)
DX: N93.9 Abnormal uterine and vaginal bleeding, unspecified (principal); R10.31 Right lower quadrant pain; R11.0 Nausea
CPT/HCPCS: 36415; 76830-TC; 80053; 81003; 84703; 85025; 85610; 85730; 86850; 86900; 86901; 87086; 99284-25

== ENCOUNTER 2024-09-15 09:22 | Emergency (ER) | payer OTHER ==
[2024-09-15 09:36] VITALS: BP 117/77; PULSE 88; RESP 18; TEMP 98.7; BMI 29.9
[2024-09-15] MEDS ORDERED: LIDOCAINE 4% PATCH TP ONE (10:07)
[2024-09-15] MEDS ORDERED: KETOROLAC TROMETHAMINE 30 MG/1 ML VIAL ONE (10:08)
[2024-09-15] MEDS: KETOROLAC TROMETHAMINE 30 MG/1 ML VIAL IM ONE (10:14)
[2024-09-15] MEDS: diazePAM 5 MG TABLET PO ONE (10:15)
[2024-09-15] MEDS: LIDOCAINE 4% PATCH TP ONE (10:15)
[2024-09-15] MEDS: LIDOCAINE 5% TOPICAL PATCH TP ONE (10:17)
[2024-09-15] MEDS ORDERED: LIDOCAINE PATCH REMOVAL MC SCH ×2 (22:00)
== END 2024-09-15 11:47 | disposition home or self-care (01) ==
LOC: JERFT 09:22
PROC: 3E0233Z Introduction of Anti-inflammatory into Muscle, Percutaneous Approach (ICD-10-PCS; principal; 2024-09-15)
DX: M25.562 Pain in left knee (principal)
CPT/HCPCS: 73562-TC-LT-FY; 99284-25

== ENCOUNTER 2025-08-25 10:11 | Emergency (ER) | payer OTHER ==
[2025-08-25 10:24] VITALS: RESP 18; TEMP 98.2; BMI 30.2
[2025-08-25 11:36] LABS: URINE APPEARANCE CLEAR; URINE BILIRUBIN NEGATIVE (NEGATIVE); URINE COLOR YELLOW; URINE GLUCOSE (UA) NEGATIVE (NEGATIVE); URINE KETONE TRACE (NEGATIVE); URINE LEUK ESTERASE NEGATIVE (NEGATIVE); URINE NITRITE NEGATIVE (NEGATIVE); URINE PROTEIN TRACE (NEGATIVE); URINE UROBILINOGEN 0.2 mg/dL (0.2-1.0)
[2025-08-25] MEDS ORDERED: GABAPENTIN 300 MG CAPSULE ONE (11:55)
[2025-08-25] MEDS ORDERED: diphenhydrAMINE HCL 25 MG CAPSULE (FP) PO ONE (12:06)
[2025-08-25] MEDS: diphenhydrAMINE HCL 25 MG CAPSULE (FP) PO ONE (12:10)
[2025-08-25] MEDS: GABAPENTIN 300 MG CAPSULE PO ONE (12:11)
[2025-08-25 14:48] VITALS: BP 109/60; PULSE 83
== END 2025-08-25 16:15 | disposition home or self-care (01) ==
LOC: JER 10:11
DX: M54.6 Pain in thoracic spine (principal)
CPT/HCPCS: 72128-TC; 81003; 84703; 87086; 99284-25